=== PATIENT | female | born 2000 | race Caucasian/White ===

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

== ENCOUNTER → 2021-01-11 15:35 | Outpatient (CLI) | payer OTHER, SELFPAY ==
--- NOTE | 2021-01-11 15:39 | DI.RAD.S_ITS ---
PROCEDURE: XR CHEST 2V INDICATIONS: cough, chest congestion, pt has hx and concerned for PNA TECHNIQUE: 2 views of the chest were acquired. COMPARISON: None. FINDINGS: Surgical changes and devices: None. Lungs and pleura: Lungs are clear. No pleural effusions or pneumothorax. Mediastinum: Mediastinal contours are normal. Heart size is normal. Bones and chest wall: No suspicious bony abnormalities. Soft tissues appear unremarkable. IMPRESSION: Normal for age, source of current cough symptoms is not seen. Dictated by: Usman Saravia M.D. on 01/11/2021 at 15:45 Approved by: Usman Saravia M.D. on 01/11/2021 at 15:45
== END ==
PROVIDERS: PCP Registered Nurse Diabetes Educator; Referring Provider Physician Assistant; Visit Provider Physician Assistant
DX: R09.89 Other specified symptoms and signs involving the circulatory and respiratory systems (principal); R05 Cough
CPT/HCPCS: 71046

== ENCOUNTER 2021-02-16 19:01 | Emergency (ER) | payer OTHER, SELFPAY ==
[2021-02-16 19:12] VITALS: BP 120/75; PULSE 108; RESP 24; TEMP 37.4; O2SAT 97; BMI 27.6
--- NOTE | 2021-02-16 19:39 | ED.GENADULT ---
HPI - General Adult General Chief complaint: Upper Respiratory Symptoms Stated complaint: covid +, having breathing issues Time Seen by Provider: 02/16/21 19:16 Source: patient Mode of arrival: Ambulatory Limitations: no limitations History of Present Illness HPI narrative: Patient is an otherwise healthy 21-year-old unvaccinated against COVID female who started having COVID like symptoms approximately 10 days ago. One week ago she had a COVID test performed as an outpatient. She received a positive resolved 4 days ago. She states that her fever has improved. The rest her symptoms seem to be improving until the past 24 hours when her coughing has returned. She states she can not sleep at night because of the coughing. She has also vomited because of the coughing. Related Data Allergies Allergy/AdvReac Type Severity Reaction Status Date / Time metronidazole Allergy Mild lots of Verified 02/16/21 19:12 vomiting Review of Systems Constitutional Constitutional: Denies fever(s) Respiratory Respiratory: Reports as per HPI and Reports system reviewed and no additional complaints, except as documented Gastrointestinal Gastrointestinal: Reports system reviewed and no additional complaints, except as documented Integumentary/Breasts Skin/Breast: Reports system reviewed and no additional complaints, except as documented and Reports as per HPI Neurologic Neurologic: Reports system reviewed and no additional complaints, except as documented Hematologic/Lymphatic On Anticoagulants: No Patient History Medical History Abdominal pain Anxiety Constipation Depression Folliculitis Injury of right hand Nausea PTSD (post-traumatic stress disorder) Social History Smoking Status: Current every day smoker Tobacco: How many years used: 5 quit status: considering quitting second hand exposure: Yes (father's home and when smoking in car w/ windows up. ) alcohol intake: current substance use type: does not use Smoking Status: Current every day smoker tobacco type: cigarettes alcohol intake frequency: 0-2 drinks per day Substance Use Type: does not use Exam Initial Vital Signs Initial Vital Signs: Vital Signs Temperature 99.3 F 02/16/21 19:12 Pulse Rate 108 H 02/16/21 19:12 Respiratory Rate 24 02/16/21 19:12 Blood Pressure 120/75 02/16/21 19:12 Pulse Oximetry 97 02/16/21 19:12 HENMT Head: normal to inspection and normocephalic Resp Effort & Inspection: normal respiratory effort, not labored and not tachypneic Auscultation: clear to auscultation bilaterally and no rhonchi Cardio Rate: tachycardic Rhythm: regular rhythm Skin General: no rashes or lesions noted Neuro General: patient alert, patient awake and moves all extremities Extrem General: normal to inspection Psych Appearance: grossly normal and well kempt Course Vital Signs Vital signs: Vital Signs - 8 hr 02/16/21 19:12 Temperature 99.3 F Pulse Rate 108 H Respiratory Rate 24 Blood Pressure 120/75 Pulse Oximetry 97 Medical Decision Making ECG Data Attestation: I personally reviewed and interpreted this ECG as follows: Prior ECG tracings: available for review Interpretation: Sinus tachycardia Ventricular rate 104 Normal axis Normal QRS Normal QTC No ST T wave changes Discharge Plan Departure Patient Disposition: Home Clinical Impression: COVID-19, Cough Instructions: DI for COVID-19 (Suspected or Confirmed ) Activity Restrictions/Additional Instructions: Unfortunately there is not much we can do about the cough. You can try ygqe-sbj-jswtqcm cough suppressants. Your to quarantine yourself for the next 10 days. Be fever free and the rest her symptoms be improving before it your quarantine is over. Return to the emergency department for any oxygen saturations consistently below 90. Referrals: Morales Blake ARNP [Primary Care Provider] -
[2021-02-16 19:52] VITALS: BP 111/62; PULSE 102; RESP 15; O2SAT 96
== END 2021-02-16 19:52 | disposition home or self-care (01) ==
PROVIDERS: Emergency Provider Emergency Medicine; PCP Registered Nurse Diabetes Educator
DX: U07.1 COVID-19 (principal); R05 Cough; R00.0 Tachycardia, unspecified
CPT/HCPCS: 93005; 99282; 99283

== ENCOUNTER 2021-05-03 01:38 | Emergency (ER) | payer OTHER, SELFPAY ==
[2021-05-03] VITALS (9 sets, daily range): BP systolic 110–131; BP diastolic 56–77; PULSE 78–105; RESP 17; TEMP 36.8; O2SAT 99–100; BMI 27.3
--- NOTE | 2021-05-03 02:02 | DI.CT.S_ITS ---
PROCEDURE: CT ABDOMEN PELVIS W CON INDICATIONS: right lower quadrant pain TECHNIQUE: After the administration of intravenous contrast, axial sections acquired from the lung bases to the pubic symphysis. Coronal and sagittal reformats were performed. For radiation dose reduction, the following was used: automated exposure control, adjustment of mA and/or kV according to patient size. COMPARISON: None. FINDINGS: Image quality: Excellent. Lung bases: Unremarkable. Heart: No significant findings. ABDOMEN: Liver: Unremarkable. Gallbladder: Unremarkable. Biliary ducts: Unremarkable. Pancreas: Unremarkable. Spleen: Unremarkable. Adrenal Glands: Unremarkable. Kidneys and Ureters: Unremarkable. Stomach and Bowel: Stomach, small bowel loops, and colon are unremarkable. Appendix is not visualized. No secondary signs of acute appendicitis. Peritoneum: No abnormal intraperitoneal fluid. No free air. Ventral Wall: No hernias. Abdominal Nodes: No retroperitoneal or mesenteric adenopathy by size criteria. Vessels: Aorta and inferior vena cava are normal in size. PELVIS: Pelvic Organs: Bilateral cystic adnexa. The largest left adnexal cyst measures 4.5 x 3.5 cm. The largest right adnexal cyst measures 2.8 x 2.5 cm. Physiologic fluid in the pelvis. Collapsed right adnexal cyst . Bladder: Unremarkable. Pelvic Nodes: No enlarged lymph nodes. Miscellaneous: No hernias are seen. Bones: Unremarkable. IMPRESSION: 1. Appendix not visualized. No secondary signs of acute appendicitis. 2. Bilateral cystic adnexa. Findings include a 2.8 cm right adnexal cyst, a collapsed right adnexal cyst, and a 4.5 cm left adnexal cyst. Comment: Final report is concordant with preliminary interpretation provided by [facility]. Dictated by: Perry Rich M.D. on 05/03/2021 at 7:47 Approved by: Perry Rcih M.D. on 05/03/2021 at 7:52
--- NOTE | 2021-05-03 02:02 | ED.ABDPAIN ---
HPI - Abdominal Pain General Chief Complaint: Abdominal Pain Stated Complaint: abd pain x3 hours Time Seen by Provider: 05/03/21 01:49 Source: patient Mode of arrival: Ambulatory History of Present Illness HPI narrative: Patient is a 21 year old female who presents with right lower quadrant pain. She says it started near her umbilicus and moved to her right lower quadrant. She says this is different than her previous ovarian cyst. She was feeling well earlier today and this evening. She has had no decrease in appetite she denies any fever. No nausea or vomiting. It hurts every time she moves or walks other heart rate over also hurt. He denies any flank pain no painful or frequent urination. Her ovarian cyst was previously on the left side. Related Data Allergies Allergy/AdvReac Type Severity Reaction Status Date / Time metronidazole Allergy Mild lots of Verified 02/16/21 19:12 vomiting Review of Systems Review of Systems Narrative: GENERAL: Denies chills, fatigue, malaise, fever, sweats, travel HEENT: Denies sinus pain, ear pain, sore throat, difficulty swallowing, neck pain RESPIRATORY: Denies dyspnea, cough, wheezing, hemoptysis, sputum. CARDIOVASCULAR: Denies chest pain, palpitations, orthopnea, edema GASTROINTESTINAL: See HPI : Denies dysuria, frequency, incontinence, hematuria, urinary retention, flank pain. MUSCULOSKELETAL: Denies weakness, joint pain, or bony pain SKIN: No rash, no erythema, no pruritus NEUROLOGIC: Denies weakness, dizziness, headache, numbness, change in speech, confusion PSYCHIATRIC: No concerning psychosocial issues. 12 point review of systems is negative except for those stated above and HPI Patient History Medical History Abdominal pain Anxiety Constipation Depression Folliculitis Injury of right hand Nausea PTSD (post-traumatic stress disorder) Social History Smoking Status: Current every day smoker Tobacco: How many years used: 5 quit status: considering quitting second hand exposure: Yes (father's home and when smoking in car w/ windows up. ) alcohol intake: current substance use type: does not use Smoking Status: Current every day smoker tobacco type: cigarettes alcohol intake frequency: 0-2 drinks per day Substance Use Type: does not use Exam Initial Vital Signs Initial Vital Signs: Vital Signs Temperature 98.3 F 05/03/21 01:51 Pulse Rate 104 H 05/03/21 01:51 Respiratory Rate 17 05/03/21 01:51 Blood Pressure 131/77 05/03/21 01:51 Pulse Oximetry 99 05/03/21 01:51 GENERAL: Well-appearing, well-nourished and in no acute distress. HEENT: Head atraumatic,EOMI, pupils reactive, face symmetric, moist mucous membranes CARDIOVASCULAR: Regular rate and rhythm without murmurs, rubs or gallops. RESPIRATORY: Breath sounds equal bilaterally, no wheezes rales or rhonchi. ABDOMEN: Soft, tender right lower quadrant positive rebound negative [place] sign EXTREMITIES: Normal range of motion, no clubbing or edema. Neurovascularly intact NEUROLOGICAL: Alert and oriented x4.Normal gait and speech. SKIN: Warm, dry, no laceration, no petechiae, no rashes or lesions. Course Orders Ordered: ED Orders 05/03/21 01:51 Complete Blood Count AUTO DIFF Stat Comprehensive Metabolic Panel Stat Lipase Stat Test Serum,Qual Stat 05/03/21 02:02 CT abdomen pelvis w con Stat Vital Signs Vital signs: Vital Signs - 8 hr 05/03/21 01:51 05/03/21 02:15 05/03/21 02:30 Temperature 98.3 F Pulse Rate 104 H 94 H 93 H Respiratory Rate 17 Blood Pressure 131/77 Pulse Oximetry 99 100 100 05/03/21 02:45 05/03/21 03:00 05/03/21 03:30 Temperature Pulse Rate 105 H 84 84 Respiratory Rate Blood Pressure 120/66 116/60 110/62 Pulse Oximetry 99 99 99 05/03/21 04:00 05/03/21 04:30 05/03/21 05:41 Temperature Pulse Rate 102 H 87 78 Respiratory Rate Blood Pressure 116/56 L Pulse Oximetry 99 99 99 MDM - Abdominal Pain Lab Data Result diagrams: 05/03/21 01:51 05/03/21 01:51 Labs: Lab Results 05/03/21 05/03/21 05/03/21 Range/Units 01:51 01:51 01:51 WBC 12.2 H (4.5-11.0) X10^3/uL RBC 4.73 (4.0-5.2) X10^6/uL Hgb 13.6 (12.0-16.0) g/dL Hct 40.4 (36-46) % MCV 85.5 (80-100) fL MCH 28.8 (26-34) PG MCHC 33.7 (30-36) % RDW 13.8 (11.6-14.8) % Plt Count 303 (150-400) X10^3/uL Neut % (Auto) 60.9 (50-75) % Lymph % (Auto) 28.7 (25-40) % [place] % (Auto) 7.5 (3-14) % Eos % (Auto) 2.2 (2-4) % Baso % (Auto) 0.7 (0-2) % Neut # (Auto) 7400 H (7218-9150) /uL Lymph # (Auto) 3500 (6650-9519) /uL [place] # (Auto) 900 (0-900) /uL Eos # (Auto) 300 (0-450) /uL Baso # (Auto) 100 (0-100) /uL Sodium 139 (137-145) mmol/L Potassium 3.5 (3.4-5.1) mmol/L Chloride 106 (98-107) mmol/L Carbon Dioxide 26 (22-32) mmol/L BUN 14 (7-17) mg/dL Creatinine 0.77 (0.52-1.04) mg/dL Estimated GFR > 60.0 (>60) mL/min BUN/Creatinine Ratio 18.2 (6-22) Glucose 109 H (70-100) mg/dL Calcium 9.3 (8.4-10.2) mg/dL Total Bilirubin 1.7 H (0.2-1.3) mg/dL AST 22 (14-36) IU/L ALT 18 (<35) IU/L Alkaline Phosphatase 68 (38-126) U/L Total Protein 7.9 (6.3-8.2) g/dL Albumin 4.5 (3.5-5.0) g/dL Globulin 3.4 (1.7-4.1) g/dL Albumin/Globulin Ratio 1.3 (1.0-2.8) Lipase 65 (23-300) U/L Serum , Qual Negative (Negative) Point of care testing: Point of Care Testing Test Results Negative Urine Dip Bedside Urine Glucose Negative Bedside Urine Bilirubin - Negative Bedside Urine Ketone - Negative Urine Specific [place] 1.005 Bedside Urine Occult Blood - Negative Bedside Urine pH 6.5 Bedside Urine Protein - Negative Bedside Urine Urobilinogen +/- 1mg Bedside Urine Nitrite - Negative Bedside Urine Leukocytes - Negative Esterase Imaging Data CT scan - abdomen/pelvis: Radiologist's Impression: Preliminary report: Cystic change bilateral adnexa. Cyst within left adnexa measures up to 4.4 by 3 cm best identified on image 68 series 2. Recommended further evaluation with transabdominal transvaginal ultrasound. Small free fluid within the cul-de-sac likely physiologic or reactive. Appendix is not identified with certainty however there is no secondary signs of appendicitis with an right lower quadrant. MDM Narrative Medical decision making narrative: The patient's signs symptoms and exam are worrisome for appendicitis. She does have mild leukocytosis of 12.[address] does not show appendicitis. Patient is re-examined pain is improved but not completely gone. She is able to stand and walk certainly more comfortable than she was previously. She did not receive any pain medication in the emergency department. 5am, Dr. Bradford surgeries been obtained patient's symptoms test results at this time agrees with discharging home and returning as needed. Discharge Plan Departure Patient Disposition: Home Clinical Impression: Abdominal pain, Cyst of left ovary Instructions: DI for Abdominal Pain-Adult Activity Restrictions/Additional Instructions: *You have been diagnosed with abdominal pain *What to do: At this time CT scan does not show any sign of a sinusitis however if ear symptoms are worsening please return to the emergency department as soon as possible. You are also noted to have a large left ovarian cyst was is on likely related to his symptoms today *Continue to take medications as directed *Follow up with your primary care provider in 2-3 days *Return to ER if you should have increasing pain, fever or any new, worsening or concerning symptoms Referrals: Morales Blake ARNP [Primary Care Provider] -
[2021-05-03 02:08] LABS: Add Manual Diff / Slide Review NO; Basophils Absolute Auto 100 /uL (0-100); Basophils Percent Auto 0.7 % (0-2); Eosinophils Absolute Auto 300 /uL (0-450); Eosinophils Percent Auto 2.2 % (2-4); Hematocrit 40.4 % (36-46); Hemoglobin 13.6 g/dL (12.0-16.0); Lymphocytes Absolute Auto 3500 /uL (1100-4500); Lymphocytes Percent Auto 28.7 % (25-40); Mean Corpuscular HGB Conc 33.7 % (30-36); Mean Corpuscular Hemoglobin 28.8 PG (26-34); Mean Corpuscular Volume 85.5 fL (80-100); Monocytes Absolute Auto 900 /uL (0-900); Monocytes Percent Auto 7.5 % (3-14); Neutrophils Absolute Auto 7400 /uL (1500-7000); Neutrophils Percent Auto 60.9 % (50-75); Platelet Count 303 X10^3/uL (150-400); Red Blood Cell Count 4.73 X10^6/uL (4.0-5.2); Red Cell Distribution Width 13.8 % (11.6-14.8); White Blood Cell Count 12.2 X10^3/uL (4.5-11.0)
[2021-05-03 02:17] LABS: Alanine Aminotransferase 18 IU/L (<35); Albumin 4.5 g/dL (3.5-5.0); Albumin Globulin Ratio 1.3 (1.0-2.8); Alkaline Phosphatase 68 U/L (38-126); Aspartate Aminotransferase 22 IU/L (14-36); BUN Creatinine Ratio 18.2 (6-22); Bilirubin Total 1.7 mg/dL (0.2-1.3); Blood Urea Nitrogen 14 mg/dL (7-17); Calcium 9.3 mg/dL (8.4-10.2); Carbon Dioxide 26 mmol/L (22-32); Chloride 106 mmol/L (98-107); Estimated Glomerular Filt Rate > 60.0 mL/min (>60); Globulin 3.4 g/dL (1.7-4.1); Glucose 109 mg/dL (70-100); HEMOLYSIS < 15 (0-50); Lipase 65 U/L (23-300); Potassium 3.5 mmol/L (3.4-5.1); Sodium 139 mmol/L (137-145); Total Protein 7.9 g/dL (6.3-8.2)
[2021-05-03 02:23] LABS: Pregnancy Test Serum,Qual Negative (Negative)
== END 2021-05-03 05:49 | disposition home or self-care (01) ==
PROVIDERS: Emergency Provider Emergency Medicine; PCP Registered Nurse Diabetes Educator
DX: R10.31 Right lower quadrant pain (principal); N83.202 Unspecified ovarian cyst, left side
CPT/HCPCS: 36415; 74177; 80053; 81003; 81025; 83690; 84703; 85025; 99284; Q9967

== ENCOUNTER 2021-05-05 02:24 | Emergency (ER) | payer OTHER, SELFPAY ==
[2021-05-05 02:25] VITALS: BP 137/73; PULSE 108; RESP 17; TEMP 36.9; O2SAT 98; BMI 27.3
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
[2021-05-05] MEDS: LIDOCAINE 1% W/EPI 30 ML (03:04)
[2021-05-05] MEDS: LIDOCAINE 1% (PF) 2 ML SUBCUT (03:04)
== END 2021-05-05 03:06 | disposition home or self-care (01) ==
PROVIDERS: Emergency Provider Emergency Medicine; PCP Registered Nurse Diabetes Educator
DX: S01.02XA Laceration with foreign body of scalp, initial encounter (principal); W34.010A Accidental discharge of airgun, initial encounter
CPT/HCPCS: 12001; 99281; 99283

== ENCOUNTER → 2021-06-20 13:58 | Outpatient (CLI) | payer OTHER, SELFPAY ==
[2021-06-26 21:35] LABS: H.pylori IgG 0.52 (0.00-0.79)
== END ==
PROVIDERS: PCP Registered Nurse Diabetes Educator; Referring Provider Family Medicine; Visit Provider Family Medicine
DX: K21.9 Gastro-esophageal reflux disease without esophagitis (principal); R10.12 Left upper quadrant pain; R10.13 Epigastric pain
CPT/HCPCS: 36415; 86677

== ENCOUNTER → 2021-09-13 14:41 | Outpatient (CLI) | payer OTHER, SELFPAY ==
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
== END ==
PROVIDERS: PCP Registered Nurse Diabetes Educator; Referring Provider Registered Nurse Diabetes Educator; Visit Provider Registered Nurse Diabetes Educator
DX: M79.642 Pain in left hand; S63.617A Unspecified sprain of left little finger, initial encounter; X58.XXXA Exposure to other specified factors, initial encounter
CPT/HCPCS: 73140

== ENCOUNTER 2021-12-23 22:08 | Emergency (ER) | payer OTHER, SELFPAY ==
[2021-12-23 22:11] VITALS: BP 131/68; PULSE 127; RESP 18; TEMP 36.4; O2SAT 99; BMI 27.6
--- NOTE | 2021-12-23 22:26 | DI.US.S_ITS ---
PROCEDURE: US PELVIC COMPLETE INDICATIONS: severe LLQ pain TECHNIQUE: Real-time scanning was performed of the pelvic organs, with image documentation. Additional endovaginal scanning was necessary due to incomplete visualization of the adnexal and endometrial structures by transabdominal scanning. COMPARISON: [facility], US, US PELVIC COMPLETE, 04/13/2020, 11:04. FINDINGS: Uterus: Uterus is anteverted and normal in size at 4.3 x 4.8 x 6.8 cm. The myometrium is homogeneous. The endometrium measures 8.6 mm combined thickness. No abnormal adjacent free fluid is seen. Ovaries: The right ovary measures 2.4 x 3.0 x 2.3 cm. Suspect a small 1.8 cm hemorrhagic right ovarian cyst. The left ovary measures 2.6 x 1.2 x 2.1 cm.. The ovaries have a normal sonographic appearance. Less than 12 follicles can be seen in each ovary. No right-sided adnexal masses are seen but there does appear to be a paraovarian cyst measuring 3.5 x 3.5 x 3.9 cm that is not clearly adherent 2 or emanating from the left ovary.. Other: No pathologic free abdominal or pelvic fluid. IMPRESSION: Small presumed hemorrhagic ovarian cyst on the right. A structure that requires follow-up is located at the left adnexa were a para ovarian cyst measuring up to 3.5 x 3.5 x 3.9 cm is present. Follow-up in 6-8 weeks is recommended to confirm resolution. If this structure persists gynecological consultation for consideration of surgical excision would be recommended. We strive to produce accurate, complete, and clear reports of imaging services. To assist us in improving patient care, this report was composed using standard report templates and voice recognition software. Therefore, it may contain abnormal punctuation, insertions and/or omissions. Occasional wrong-word or sound-alike substitutions may occur. Though we review the report and make efforts to correct it, we do recommend that the report be read carefully in proper context to recognize any text inaccuracies. Dictated by: Usman Saravia M.D. on 12/23/2021 at 23:26 Approved by: Usman Saravia M.D. on 12/23/2021 at 23:30
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
[2021-12-24] VITALS: PULSE 87; RESP 16; O2SAT 99
== END 2021-12-24 | disposition home or self-care (01) ==
PROVIDERS: Emergency Provider Emergency Medicine; PCP Registered Nurse Diabetes Educator
DX: N83.202 Unspecified ovarian cyst, left side (principal)
CPT/HCPCS: 76830; 76856; 81003; 81025; 99282; 99283

== ENCOUNTER 2022-03-20 16:50 | Emergency (ER) | payer SELFPAY ==
[2022-03-20 17:18] VITALS: BP 127/53; PULSE 84; RESP 18; TEMP 36.8; O2SAT 99; BMI 27.3
== END 2022-03-20 18:14 | disposition left against medical advice (07) ==
PROVIDERS: Emergency Provider Emergency Medicine; PCP Registered Nurse Diabetes Educator
CPT/HCPCS: 99281

== ENCOUNTER 2022-03-21 23:19 | Emergency (ER) | payer OTHER, MEDICAID, SELFPAY ==
[2022-03-21 23:25] VITALS: BP 119/68; PULSE 88; RESP 20; TEMP 37.1; O2SAT 98; BMI 27.3
--- NOTE | 2022-03-22 01:39 | ED.SKABFB ---
HPI - Skin/Abscess/Foreign Bdy General Chief complaint: Skin/Abscess/Foreign Body Stated complaint: right hand tattoo infected Time Seen by Provider: 03/22/22 01:25 Source: patient Mode of arrival: Ambulatory Limitations: no limitations History of Present Illness HPI narrative: Patient is a 22-year-old female who presents with tattoo problem. She says she had a new tattoo and new shop about a week ago. She has had many to had to use however none of them have done this. Seems to be peeling is slightly raised mildly erythematous. No fever or chills. No significant swelling. She says during that time to process her hand was wiped down with rubbing alcohol many times Related Data Previous Rx's Medication Instructions Recorded omeprazole 40 mg capsule,delayed 40 mg PO BID #60 caps 06/20/21 release Splint #1 ea 10/17/21 cephalexin 500 mg capsule 500 mg PO BID 5 days #10 caps 03/22/22 Allergies Allergy/AdvReac Type Severity Reaction Status Date / Time metronidazole Allergy Mild lots of Verified 12/23/21 22:21 vomiting Review of Systems Review of Systems Narrative: GENERAL: Denies chills,fever HEENT: Denies throat pain RESPIRATORY: Denies dyspnea, cough, wheezing CARDIOVASCULAR: Denies chest pain, palpitations GASTROINTESTINAL: Denies nausea, vomiting MUSCULOSKELETAL: Denies extremity pain, injury SKIN: see HPI NEUROLOGIC: Denies weakness, dizziness, headache, numbness 8 point review of systems is negative except for those stated above and HPI Patient History Medical History Abdominal pain Abdominal pain, left upper quadrant Anxiety Constipation Depression Epigastric abdominal pain Folliculitis GERD (gastroesophageal reflux disease) Injury of right hand Nausea PTSD (post-traumatic stress disorder) Social History Smoking Status: Former smoker Tobacco: How many years used: 5 quit status: considering quitting second hand exposure: Yes (father's home and when smoking in car w/ windows up. ) alcohol intake: current substance use type: does not use Smoking Status: Former smoker tobacco type: cigarettes alcohol intake frequency: holidays/special occasions only Substance Use Type: does not use Exam Initial Vital Signs Initial Vital Signs: Vital Signs Temperature 98.8 F 03/21/22 23:25 Pulse Rate 88 03/21/22 23:25 Respiratory Rate 20 03/21/22 23:25 Blood Pressure 119/68 03/21/22 23:25 Pulse Oximetry 98 03/21/22 23:25 Oxygen Delivery Method 03/21/22 23:25 GENERAL: Well-appearing, well-nourished and in no acute distress. CARDIOVASCULAR: peripheral pulses in tact, cap refill <2 sec RESPIRATORY: No respiratory distress, speaks in full sentences without difficulty EXTREMITIES: Normal range of motion, no clubbing or edema. Neurovascularly intact NEUROLOGICAL: Cranial nerves II through XII grossly intact. Normal gait and speech. SKIN: Right hand tattoo on right thumb and thenar eminence. Some it is slightly raised and peeling there is minimal erythema surrounding it there is no streaking there is no pain out of proportion Course Vital Signs Vital signs: Vital Signs - 8 hr 03/21/22 23:25 03/22/22 02:04 Temperature 98.8 F Pulse Rate 88 84 Respiratory Rate 20 18 Blood Pressure 119/68 117/70 Pulse Oximetry 98 99 Oxygen Delivery Method Room Air Room Air MDM - Skin/Abscess/Foreign Bdy MDM Narrative Medical decision making narrative: Patient has minimal erythema looks like it is healing. Will start her on short course of antibiotics. At this time no sign of sepsis. Forearm and hand is soft no sign of compartment syndrome. Discharge Plan Departure Patient Disposition: Home Clinical Impression: Cellulitis of right hand Instructions: DI for Cellulitis -- Adult Activity Restrictions/Additional Instructions: *You have been diagnosed with cellulitis right hand *What to do: At this time he might have a very slight infection. Continue with hydration and antibiotic ointment. He can start antibiotics tomorrow. *Continue to take medications as directed Keflex 500 mg twice a day for 5 days--> [facility] [place] *Follow up with your primary care provider in 2-3 days or call [phone] *Return to ER if you should have increased redness pain swelling fever chills [or] any new, worsening or concerning symptoms Prescriptions: New cephalexin 500 mg capsule 500 mg PO BID 5 Days Qty: 10 0RF No Action (DME) Splint See Rx Instructions .Route .MEDSUPPLY Qty: 1 0RF Rx Instructions: As directed omeprazole 40 mg capsule,delayed release(DR/EC) 40 mg PO BID Qty: 60 0RF Referrals: Morales Blake ARNP [Primary Care Provider] - Visit Report Forms: Patient Portal/API
[2022-03-22 02:04] VITALS: BP 117/70; PULSE 84; RESP 18; O2SAT 99
== END 2022-03-22 02:05 | disposition home or self-care (01) ==
PROVIDERS: Emergency Provider Emergency Medicine; PCP Registered Nurse Diabetes Educator
DX: L03.113 Cellulitis of right upper limb (principal)
CPT/HCPCS: 99281

== ENCOUNTER 2022-04-19 19:37 | Emergency (ER) | payer OTHER, MEDICAID, SELFPAY ==
[2022-04-19 19:44] VITALS: BP 107/59; PULSE 75; RESP 14; TEMP 35.9; O2SAT 99; BMI 27.6
[2022-04-19 20:39] VITALS: BP 118/61; PULSE 77; O2SAT 99
[2022-04-19 21:00] VITALS: BP 120/58; PULSE 73; RESP 19; O2SAT 98
--- NOTE | 2022-04-19 23:04 | ED.ARRPALP ---
HPI - Arrhythmia/Palpitations General Chief Complaint: Arrhythmia/Palpitations Stated Complaint: Heart palpitations Time Seen by Provider: 04/19/22 22:10 Source: patient Mode of arrival: Ambulatory History of Present Illness HPI narrative: 22-year-old woman with a history of intermittent reflux type symptoms presents with palpitations that seem to be getting worse. She 1st noticed at the age of 16 that she would have an occasional irregular beat that was uncomfortable but not particularly painful. She had an EKG for evaluation at that time but has no further evaluation done. She notes that she is continued to have palpitations over the years but the last month it is gotten particularly troublesome and today she had an event with a couple of irregular beats that were hard and pounding enough that she felt that she was going to pass out. This caused enough concerned that she is coming in for further evaluation. She reports no recent viral symptoms, dyspnea, orthopnea. She does note that due to her work schedule her sleep schedule has been increasingly chaotic over the last month. She does not consume significant stimulants including caffeine, energy drinks, cocaine or methamphetamine. Denies recreational opiates and IV drug use. No other diet or metabolic supplements. No nausea, vomiting, diarrhea, abdominal pain, headache. She notes that she is successfully quit smoking about a month ago. Related Data Previous Rx's Medication Instructions Recorded omeprazole 40 mg capsule,delayed 40 mg PO BID #60 caps 06/20/21 release Splint #1 ea 10/17/21 Allergies Allergy/AdvReac Type Severity Reaction Status Date / Time metronidazole Allergy Mild lots of Verified 12/23/21 22:21 vomiting Review of Systems Review of Systems Narrative: Remainder of complete review of systems is otherwise unremarkable except for that included in the HPI. Patient History Medical History Abdominal pain Abdominal pain, left upper quadrant Anxiety Constipation Depression Epigastric abdominal pain Folliculitis GERD (gastroesophageal reflux disease) Injury of right hand Nausea PTSD (post-traumatic stress disorder) Social History Smoking Status: Former smoker Tobacco: How many years used: 5 quit status: considering quitting second hand exposure: Yes (father's home and when smoking in car w/ windows up. ) alcohol intake: current substance use type: does not use Smoking Status: Former smoker tobacco type: cigarettes alcohol intake frequency: holidays/special occasions only Substance Use Type: does not use Exam Initial Vital Signs Initial Vital Signs: Vital Signs Temperature 96.6 F L 04/19/22 19:44 Pulse Rate 75 04/19/22 19:44 Respiratory Rate 14 04/19/22 19:44 Blood Pressure 107/59 L 04/19/22 19:44 Pulse Oximetry 99 04/19/22 19:44 Oxygen Delivery Method 04/19/22 19:44 General: Healthy appearing, in no acute distress. Able to give a complete and coherent history. Well-nourished well-developed HEENT: Moist mucous membranes, normal sclera with reactive pupils, Neck: supple Respiratory: Lungs are clear to auscultation, no wheezing no rales no rhonchi. Full and symmetrical air movement Cardiac: Regular rate and rhythm no murmurs no bruits Abdomen: Soft, nontender, good bowel tones, no flank pain Skin: Warm and dry, no rashes Neurologic: Grossly neurologically intact with no obvious asymmetries or abnormalities Extremities: No trauma, well perfused Psych: Cooperative, appropriate insight and affect Course Orders Ordered: ED Orders 04/19/22 20:46 EKG-12 Lead Stat 04/19/22 23:12 XR chest 1V Stat 04/19/22 23:47 Complete Blood Count AUTO DIFF Stat Comprehensive Metabolic Panel Stat Thyroid Stimulating Hormone Stat Troponin & CK Cardiac Panel Stat 04/20/22 00:54 Free T4, Direct Thyroxine Stat Vital Signs Vital signs: Vital Signs - 8 hr 04/19/22 19:44 04/19/22 20:39 04/19/22 20:39 Temperature 96.6 F L Pulse Rate 75 77 Respiratory Rate 14 Blood Pressure 107/59 L 118/61 Pulse Oximetry 99 99 Oxygen Delivery Method Room Air 04/19/22 21:00 04/19/22 21:00 04/19/22 23:08 Temperature Pulse Rate 73 75 Respiratory Rate 19 18 Blood Pressure 120/58 L Pulse Oximetry 98 Oxygen Delivery Method 04/19/22 23:30 04/20/22 00:00 04/20/22 00:30 Temperature Pulse Rate 78 87 83 Respiratory Rate 36 H 26 H 30 H Blood Pressure Pulse Oximetry 98 98 98 Oxygen Delivery Method 04/20/22 01:00 04/20/22 01:08 Temperature Pulse Rate 88 85 Respiratory Rate 21 16 Blood Pressure 122/57 L Pulse Oximetry 98 100 Oxygen Delivery Method Room Air MDM - Arrhythmia/Palpitations Lab Data Result diagrams: 04/19/22 23:47 04/19/22 23:47 Labs: Lab Results 04/19/22 04/19/22 04/19/22 Range/Units 23:47 23:47 23:47 WBC 7.8 (4.5-11.0) X10^3/uL RBC 4.82 (4.0-5.2) X10^6/uL Hgb 13.6 (12.0-16.0) g/dL Hct 40.2 (36-46) % MCV 83.5 (80-100) fL MCH 28.1 (26-34) PG MCHC 33.7 (30-36) % RDW 12.9 (11.6-14.8) % Plt Count 329 (150-400) X10^3/uL Neut % (Auto) 54.5 (50-75) % Lymph % (Auto) 35.8 (25-40) % [place] % (Auto) 6.4 (3-14) % Eos % (Auto) 2.6 (2-4) % Baso % (Auto) 0.7 (0-2) % Neut # (Auto) 4200 (3635-9397) /uL Lymph # (Auto) 2800 (9140-8253) /uL [place] # (Auto) 500 (0-900) /uL Eos # (Auto) 200 (0-450) /uL Baso # (Auto) 100 (0-100) /uL Sodium 139 (137-145) mmol/L Potassium 3.6 (3.4-5.1) mmol/L Chloride 104 (98-107) mmol/L Carbon Dioxide 24 (22-32) mmol/L BUN 8 (7-17) mg/dL Creatinine 0.53 (0.52-1.04) mg/dL Estimated GFR > 60 (>60) mL/min BUN/Creatinine Ratio 15.1 (6-22) Glucose 84 (70-100) mg/dL Calcium 8.9 (8.4-10.2) mg/dL Total Bilirubin 2.6 H (0.2-1.3) mg/dL AST 31 (14-36) IU/L ALT 27 (<35) IU/L Alkaline Phosphatase 82 (38-126) U/L Total Creatine Kinase (30-135) U/L CK-MB (CK-2) CK-MB (CK-2) Rel Index Troponin I (0.01-0.034) ng/mL Total Protein 7.8 (6.3-8.2) g/dL Albumin 4.4 (3.5-5.0) g/dL Globulin 3.4 (1.7-4.1) g/dL Albumin/Globulin Ratio 1.3 (1.0-2.8) TSH 0.210 L (0.47-4.68) uIU/mL Free T4 (0.78-2.19) ng/dL 04/19/22 04/19/22 Range/Units 23:47 23:47 WBC (4.5-11.0) X10^3/uL RBC (4.0-5.2) X10^6/uL Hgb (12.0-16.0) g/dL Hct (36-46) % MCV (80-100) fL MCH (26-34) PG MCHC (30-36) % RDW (11.6-14.8) % Plt Count (150-400) X10^3/uL Neut % (Auto) (50-75) % Lymph % (Auto) (25-40) % [place] % (Auto) (3-14) % Eos % (Auto) (2-4) % Baso % (Auto) (0-2) % Neut # (Auto) (1328-8968) /uL Lymph # (Auto) (8949-6936) /uL [place] # (Auto) (0-900) /uL Eos # (Auto) (0-450) /uL Baso # (Auto) (0-100) /uL Sodium (137-145) mmol/L Potassium (3.4-5.1) mmol/L Chloride (98-107) mmol/L Carbon Dioxide (22-32) mmol/L BUN (7-17) mg/dL Creatinine (0.52-1.04) mg/dL Estimated GFR (>60) mL/min BUN/Creatinine Ratio (6-22) Glucose (70-100) mg/dL Calcium (8.4-10.2) mg/dL Total Bilirubin (0.2-1.3) mg/dL AST (14-36) IU/L ALT (<35) IU/L Alkaline Phosphatase (38-126) U/L Total Creatine Kinase 39 (30-135) U/L CK-MB (CK-2) TNP CK-MB (CK-2) Rel Index TNP Troponin I < 0.012 (0.01-0.034) ng/mL Total Protein (6.3-8.2) g/dL Albumin (3.5-5.0) g/dL Globulin (1.7-4.1) g/dL Albumin/Globulin Ratio (1.0-2.8) TSH (0.47-4.68) uIU/mL Free T4 1.37 (0.78-2.19) ng/dL Imaging Data Chest x-ray: Radiologist's Impresson: FINDINGS:? ? Surgical changes and devices:? None.? ? Lungs and pleura:? Lungs are clear.? No pleural effusions or pneumothorax.? ? Mediastinum:? Mediastinal contours appear normal.? Heart size is normal.? ? Bones and chest wall:? No suspicious bony lesions.? Overlying soft tissues appear unremarkable.? ? IMPRESSION:? ? 1.? No acute cardiopulmonary disease. ? ? ? Dictated by: Jon Aggarwal M.D. on 04/20/2022 at 0:46 ? ? ECG Data Interpretation: Sinus rhythm at a rate of 70 with occasional sinus Arrhythmia. Normal intervals, normal axis No acute ischemic changes MDM Narrative Medical decision making narrative: 22-year-old woman with increasing palpitations. Workup is relatively unremarkable. She is having mild sinus arrhythmia but no pathologic rhythms or SVT. She does note that she is been having increasing sleep disturbances due to work but no other significant abnormalities. She does note she had upper respiratory infection a couple of weeks ago. Lab work, EKG and chest x-ray did not suggest any evidence of cardiomyopathy, pericarditis or myocarditis. TSH is slightly suppressed T4 will be added. Will contact her if the T4 is off and if it is she will need to follow up with the primary care physician at this point she is not losing weight and does not have fine motor tremor to suggest significant hyperthyroidism. Reassurance is given, talked about circadian rhythms and importance of scheduled and regular sleep. Questions are answered and she is safe for discharge home Discharge Plan Departure Patient Disposition: Home Clinical Impression: Sinus arrhythmia Instructions: DI for Hyperthyroidism, DI for Arrhythmias Activity Restrictions/Additional Instructions: Thank you for coming in today Your exam, EKG, lab work and clinical workup is very reassuring. You are having occasional early heartbeats. This is called a sinus arrhythmia. This is not life-threatening and it is not a precursor of a life-threatening arrhythmia. It is somewhat disconcerting. Your lab work suggested that you may have mild hyper thyroidism. I added a 2nd lab tests and I will text you later this morning with results of that. If this is normal, you do not need any further follow-up. If this is abnormal you will need to find a primary care physician to talk about hyperthyroidism. In the meantime, doing what you can to keep your sleep patterns regular and maintain circadian rhythms, being well hydrated and avoiding stimulants like caffeine and energy drinks will be helpful in decreasing heart palpitations. I wish you the best. Prescriptions: No Action (DME) Splint See Rx Instructions .Route .MEDSUPPLY Qty: 1 0RF Rx Instructions: As directed omeprazole 40 mg capsule,delayed release(DR/EC) 40 mg PO BID Qty: 60 0RF Referrals: Morales Blake ARNP [Primary Care Provider] - Visit Report Forms: Patient Portal/API
[2022-04-19 23:08] VITALS: PULSE 75; RESP 18
--- NOTE | 2022-04-19 23:12 | DI.RAD.S_ITS ---
PROCEDURE: XR CHEST 1V INDICATIONS: palpitations TECHNIQUE: One view of the chest was acquired. COMPARISON: [facility], CR, XR CHEST 2V, 01/11/2021, 15:34. FINDINGS: Surgical changes and devices: None. Lungs and pleura: Lungs are clear. No pleural effusions or pneumothorax. Mediastinum: Mediastinal contours appear normal. Heart size is normal. Bones and chest wall: No suspicious bony lesions. Overlying soft tissues appear unremarkable. IMPRESSION: 1. No acute cardiopulmonary disease. Dictated by: Jon Aggarwal M.D. on 04/20/2022 at 0:46 Approved by: Jon Aggarwal M.D. on 04/20/2022 at 0:46
[2022-04-19 23:30] VITALS: PULSE 78; RESP 36; O2SAT 98
[2022-04-19 23:55] LABS: Add Manual Diff / Slide Review NO; Basophils Absolute Auto 100 /uL (0-100); Basophils Percent Auto 0.7 % (0-2); Eosinophils Absolute Auto 200 /uL (0-450); Eosinophils Percent Auto 2.6 % (2-4); Hematocrit 40.2 % (36-46); Hemoglobin 13.6 g/dL (12.0-16.0); Lymphocytes Absolute Auto 2800 /uL (1100-4500); Lymphocytes Percent Auto 35.8 % (25-40); Mean Corpuscular HGB Conc 33.7 % (30-36); Mean Corpuscular Hemoglobin 28.1 PG (26-34); Mean Corpuscular Volume 83.5 fL (80-100); Monocytes Absolute Auto 500 /uL (0-900); Monocytes Percent Auto 6.4 % (3-14); Neutrophils Absolute Auto 4200 /uL (1500-7000); Neutrophils Percent Auto 54.5 % (50-75); Platelet Count 329 X10^3/uL (150-400); Red Blood Cell Count 4.82 X10^6/uL (4.0-5.2); Red Cell Distribution Width 12.9 % (11.6-14.8); White Blood Cell Count 7.8 X10^3/uL (4.5-11.0)
[2022-04-20] VITALS: PULSE 87; RESP 26; O2SAT 98
[2022-04-20 00:10] LABS: Alanine Aminotransferase 27 IU/L (<35); Albumin 4.4 g/dL (3.5-5.0); Albumin Globulin Ratio 1.3 (1.0-2.8); Alkaline Phosphatase 82 U/L (38-126); Aspartate Aminotransferase 31 IU/L (14-36); BUN Creatinine Ratio 15.1 (6-22); Bilirubin Total 2.6 mg/dL (0.2-1.3); Blood Urea Nitrogen 8 mg/dL (7-17); Calcium 8.9 mg/dL (8.4-10.2); Carbon Dioxide 24 mmol/L (22-32); Chloride 104 mmol/L (98-107); Estimated Glomerular Filt Rate > 60 mL/min (>60); Globulin 3.4 g/dL (1.7-4.1); Glucose 84 mg/dL (70-100); HEMOLYSIS < 15 (0-50); Potassium 3.6 mmol/L (3.4-5.1); Sodium 139 mmol/L (137-145); Total Protein 7.8 g/dL (6.3-8.2)
[2022-04-20 00:12] LABS: Creatine Kinase 39 U/L (30-135)
[2022-04-20 00:22] LABS: Troponin I < 0.012 ng/mL (0.01-0.034)
[2022-04-20 00:30] VITALS: PULSE 83; RESP 30; O2SAT 98
[2022-04-20 01:00] VITALS: PULSE 88; RESP 21; O2SAT 98
[2022-04-20 01:08] VITALS: BP 122/57; PULSE 85; RESP 16; O2SAT 100
[2022-04-20 02:37] LABS: Free T4, Direct Thyroxine 1.37 ng/dL (0.78-2.19)
== END 2022-04-20 01:09 | disposition home or self-care (01) ==
PROVIDERS: Emergency Provider Emergency Medicine; PCP Registered Nurse Diabetes Educator
DX: I49.8 Other specified cardiac arrhythmias (principal)
CPT/HCPCS: 36415; 71045; 80053; 82550; 82553; 84439; 84443; 84484; 85025; 93005; 99281; 99284

== ENCOUNTER → 2022-04-23 17:43 | Outpatient (ROUT) | payer OTHER, MEDICAID, SELFPAY ==
[2022-04-24 17:56] LABS: Free T3, Triiodothyronine Free 4.21 pg/mL (2.77-5.27)
== END ==
PROVIDERS: PCP Registered Nurse Diabetes Educator; Visit Provider Registered Nurse Diabetes Educator
DX: R79.89 Other specified abnormal findings of blood chemistry (principal)
CPT/HCPCS: 84481

== ENCOUNTER → 2022-09-26 15:12 | Outpatient (CLI) | payer OTHER, MEDICAID, SELFPAY ==
--- NOTE | 2022-09-26 15:14 | DI.US.S_ITS ---
PROCEDURE: US PELVIC COMPLETE INDICATIONS: checking on status of cyst seen 12/23/21 TECHNIQUE: Real-time scanning was performed of the pelvic organs, with image documentation. Additional endovaginal scanning was necessary due to incomplete visualization of the adnexal and endometrial structures by transabdominal scanning. COMPARISON: [facility], US, US PELVIC COMPLETE, 12/23/2021, 22:49. FINDINGS: Uterus: Uterus is anteverted and normal in size at 6.7 x 3.2 x 3.9 cm. The myometrium is homogeneous. The endometrium measures 14 mm combined thickness. Ovaries: The right ovary measures 2.6 x 1.3 x 1.3 cm, with a calculated ovarian volume of 2.4 cc. The left ovary measures 3.3 x 2.0 by 2.3 cm, with a calculated ovarian volume of 7 cc. The ovaries have a normal sonographic appearance. Less than 12 follicles can be seen in each ovary. Left-sided simple cystic lesion measuring 3.3 x 2.9 x 3.8 centimeters, previously 3.5 x 3.5 x 3.9 centimeter. Resolved right ovarian cyst. Other: No pathologic free abdominal or pelvic fluid. IMPRESSION: Stable benign left ovarian cystic lesion. Resolved right ovarian cystic lesion. We strive to produce accurate, complete, and clear reports of imaging services. To assist us in improving patient care, this report was composed using standard report templates and voice recognition software. Therefore, it may contain abnormal punctuation, insertions and/or omissions. Occasional wrong-word or sound-alike substitutions may occur. Though we review the report and make efforts to correct it, we do recommend that the report be read carefully in proper context to recognize any text inaccuracies. Dictated by: Rudy Ríos M.D. on 09/26/2022 at 16:42 Approved by: Rudy Ríos M.D. on 09/26/2022 at 16:44
== END ==
PROVIDERS: PCP Registered Nurse Diabetes Educator; Referring Provider Registered Nurse Diabetes Educator; Visit Provider Registered Nurse Diabetes Educator
DX: N83.201 Unspecified ovarian cyst, right side (principal); N83.292 Other ovarian cyst, left side
CPT/HCPCS: 76830; 76856; 93976

== ENCOUNTER → 2022-10-11 13:28 | Outpatient (CLI) | payer OTHER, MEDICAID, SELFPAY | PROVIDERS: PCP Registered Nurse Diabetes Educator; Referring Provider Registered Nurse Diabetes Educator; Visit Provider Registered Nurse Diabetes Educator | DX: R00.2 Palpitations (principal) | CPT/HCPCS: 93242 ==

== ENCOUNTER 2022-10-15 02:04 | Emergency (ER) | payer OTHER, MEDICAID, SELFPAY ==
[2022-10-15 02:14] VITALS: BP 130/72; PULSE 96; RESP 18; TEMP 36.5; O2SAT 99; BMI 27.3
--- NOTE | 2022-10-15 02:31 | ED.URI ---
HPI - URI/Sore Throat General Chief Complaint: Upper Respiratory Symptoms Stated Complaint: panic attack, feels something is stuck in throat Time Seen by Provider: 10/15/22 02:19 Source: patient Mode of arrival: Ambulatory History of Present Illness HPI Narrative: Patient is a 22-year-old female history of anxiety presenting today with her throat. She reports that over the last couple of weeks she has randomly felt like something is in her throat. She denies any inability to swallow or difficulty breathing. She does not remember swallowing any foreign body. She says she woke up tonight felt the same symptoms she always did and then got very anxious and afraid and came to the ED. She is no chest pain or palpitations no abdominal pain, nausea or vomiting. It appears that she had TSH checked in April of 2022 but has not been rechecked. Related Data Previous Rx's Medication Instructions Recorded clindamycin phosphate 1 % topical 1 applic topical BID #30 mL 10/03/22 solution Allergies Allergy/AdvReac Type Severity Reaction Status Date / Time metronidazole Allergy Mild lots of Verified 10/15/22 02:14 vomiting Review of Systems Review of Systems ROS Unobtainable: All systems reviewed & are unremarkable except as noted in HPI and below Patient History Medical History Abdominal pain Abdominal pain, left upper quadrant Anxiety Constipation Depression Epigastric abdominal pain Folliculitis GERD (gastroesophageal reflux disease) Injury of right hand Nausea PTSD (post-traumatic stress disorder) Social History Smoking Status: Former smoker Tobacco: How many years used: 5 quit status: considering quitting second hand exposure: Yes (father's home and when smoking in car w/ windows up. ) alcohol intake: current substance use type: does not use Smoking Status: Former smoker tobacco type: cigarettes alcohol intake frequency: holidays/special occasions only Substance Use Type: does not use Exam Initial Vital Signs Initial Vital Signs: Vital Signs Temperature 97.7 F 10/15/22 02:14 Pulse Rate 96 H 10/15/22 02:14 Respiratory Rate 18 10/15/22 02:14 Blood Pressure 130/72 10/15/22 02:14 Pulse Oximetry 99 10/15/22 02:14 Oxygen Delivery Method Room Air 10/15/22 02:14 GENERAL: Alert well-appearing 22-year-old female HEENT: Head atraumatic,EOMI, pupils reactive, face symmetric, moist mucous membranes NECK: No significant goiter PHARYNX: No erythema, no tonsillar exudate, no cervical lymphadenopathy CARDIOVASCULAR: Regular rate and rhythm without murmurs, rubs or gallops. RESPIRATORY: Breath sounds equal bilaterally, no wheezes rales or rhonchi. Managing own secretions EXTREMITIES: Normal range of motion, no clubbing or edema. Neurovascularly intact NEUROLOGICAL: Alert and oriented x4. SKIN: Warm, dry, no laceration, no petechiae, no rashes or lesions. Course Vital Signs Vital signs: Vital Signs - 8 hr 10/15/22 02:14 Temperature 97.7 F Pulse Rate 96 H Respiratory Rate 18 Blood Pressure 130/72 Pulse Oximetry 99 Oxygen Delivery Method Room Air MDM - URI/Sore Throat MDM Narrative Medical decision making narrative: Patient is a 22-year-old female history of anxiety anxious tonight. She is had a couple weeks of some throat and neck discomfort. No evidence of an anaphylactic reaction no history of swallowing a foreign body does not sound quite like esophageal spasm. Possible acid reflux I did not appreciate a significant thyroid goiter but might be worth rechecking and possibly doing an ultrasound if needed as an outpatient. At this time I recommended acid reflux medicine to see if that helps GERD is another possibility. She is not having chest pain or palpitations she points to 1 specific area in her neck where she feels it every single time. At this time she does not want medication in the ED she would like to take a [id number]. We discussed symptoms and when to return to ED. Discharge Plan Departure Patient Disposition: Home Clinical Impression: GERD (gastroesophageal reflux disease) Instructions: Nontoxic Nodular Goiter, DI for Gastroesophageal Reflux Disease (GERD) Activity Restrictions/Additional Instructions: *You have been diagnosed with possible acid reflux *What to do: At this time I recommend taking [id number] acid reflux as directed this near may not help. He may also need to talk with your primary care provider in regards to having repeat thyroid testing done and possible ultrasound. *Continue to take medications as directed Famotidine, Tums, pantoprazole or other antacid medications [id number] *Follow up with your primary care provider in 2-3 days or call [phone] *Return to ER if you should have inability to breathe it, throat swelling, inability to swallow solids liquids or spit, palpitations chest pain passing out or any new, worsening or concerning symptoms Prescriptions: No Action clindamycin phosphate 1 % solution 1 applic topical BID Qty: 30 0RF Referrals: Morales Blake ARNP [Primary Care Provider] - Stand Alone Forms: Patient Portal/API
== END 2022-10-15 02:50 | disposition home or self-care (01) ==
PROVIDERS: Emergency Provider Emergency Medicine; PCP Registered Nurse Diabetes Educator
DX: K21.9 Gastro-esophageal reflux disease without esophagitis (principal)
CPT/HCPCS: 99281

== ENCOUNTER → 2022-11-22 11:31 | Outpatient (CLI) | payer OTHER, MEDICAID, SELFPAY ==
--- NOTE | 2022-11-22 11:34 | DI.RAD.S_ITS ---
PROCEDURE: XR ACUTE ABDOMEN SERIES INDICATIONS: r flank, abdominal pain TECHNIQUE: One view chest and two views of the abdomen were acquired. COMPARISON: [facility], CT, CT ABDOMEN PELVIS W CON, 05/03/2021, 2:12. FINDINGS: Surgical changes and devices: None. Chest: Lungs are clear. Heart size is normal. No pleural effusions. No pneumoperitoneum. Abdomen: Bowel gas pattern is normal. 3 millimeter phlebolith projects over the lower right hemipelvis which is without significant change compared to prior CT scan. Visualized solid organ contours appear normal. Bones: No suspicious bony lesions. IMPRESSION: No renal stone by plain film radiograph. Dictated by: Nicole Dover MD, PhD on 11/22/2022 at 13:17 Approved by: Nicole Dover MD, PhD on 11/22/2022 at 13:20
[2022-11-22 12:15] LABS: Hematocrit 39.6 % (36-46); Hemoglobin 13.7 g/dL (12.0-16.0); Mean Corpuscular HGB Conc 34.6 % (30-36); Mean Corpuscular Hemoglobin 29.2 PG (26-34); Mean Corpuscular Volume 84.7 fL (80-100); Platelet Count 272 X10^3/uL (150-400); Red Blood Cell Count 4.68 X10^6/uL (4.0-5.2); Red Cell Distribution Width 12.7 % (11.6-14.8); White Blood Cell Count 6.4 X10^3/uL (4.5-11.0)
[2022-11-22 12:30] LABS: Alanine Aminotransferase 31 IU/L (<35); Albumin 4.1 g/dL (3.5-5.0); Albumin Globulin Ratio 1.4 (1.0-2.8); Alkaline Phosphatase 81 U/L (38-126); Aspartate Aminotransferase 28 IU/L (14-36); BUN Creatinine Ratio 9.2 (6-22); Bilirubin Total 2.9 mg/dL (0.2-1.3); Blood Urea Nitrogen 6 mg/dL (7-17); Calcium 9.4 mg/dL (8.4-10.2); Carbon Dioxide 25 mmol/L (22-32); Chloride 105 mmol/L (98-107); Estimated Glomerular Filt Rate > 60 mL/min (>60); Glucose 99 mg/dL (70-100); HEMOLYSIS < 15 (0-50); Potassium 4.3 mmol/L (3.4-5.1); Sodium 138 mmol/L (137-145); Total Protein 7.1 g/dL (6.3-8.2)
== END ==
PROVIDERS: PCP Registered Nurse Diabetes Educator; Referring Provider Nurse Practitioner Family; Visit Provider Nurse Practitioner Family
DX: K59.00 Constipation, unspecified (principal); R10.9 Unspecified abdominal pain
CPT/HCPCS: 36415; 74022; 80053; 81002; 85027

== ENCOUNTER 2023-05-03 01:46 | Emergency (ER) | payer OTHER, MEDICAID, SELFPAY ==
[2023-05-03 01:53] VITALS: BP 121/58; PULSE 89; RESP 16; TEMP 36.8; O2SAT 100; BMI 23.6
--- NOTE | 2023-05-03 02:05 | DI.US.S_ITS ---
PROCEDURE: US PELVIC COMPLETE INDICATIONS: L adnexa pain with hx of cyst TECHNIQUE: Real-time scanning was performed of the pelvic organs, with image documentation. Additional endovaginal scanning was necessary due to incomplete visualization of the adnexal and endometrial structures by transabdominal scanning. COMPARISON: [facility], CT, CT ABDOMEN PELVIS W CON, 05/03/2021, 2:12. May 03, 2021 [facility], US, US PELVIC COMPLETE, 09/26/2022, 15:30. FINDINGS: Uterus: Uterus is anteverted and normal in size at 7.8 x 4.2 x 3.5 cm. The myometrium is homogeneous. The endometrium measures 0.8 cm combined thickness. Cervix and vagina are otherwise normal with benign nabothian cysts. Ovaries: The right ovary measures 3.9 x 2.1 x 2.5 cm, with a calculated ovarian volume of 10.6 cc. The left ovary measures 3.3 x 2.8 x 2 cm, with a calculated ovarian volume of 9.5 cc. The ovaries have a normal sonographic appearance. Normal arterial and venous Doppler flow to the bilateral ovaries. Less than 12 follicles can be seen in each ovary. Left paraovarian cystic lesion measuring 4.5 x 3.1 x 3 cm, previously 3.8 x 3.3 x 2.9 cm. Other: No pathologic free abdominal or pelvic fluid. IMPRESSION: 1. No sonographic evidence of ovarian torsion. Bilateral ovaries are symmetric in size and volume. 2. Similar size of left paraovarian simple cyst measuring 4.5 x 3.1 x 3 cm, previously 3.8 x 3.3 x 2.9 cm on September 26, 2022. This remotely measured 4.[address] dated April 30, 2021. 3. Normal sonographic appearance of the uterus with endometrial thickness of 0.8 cm. I agree with the preliminary report. Dictated by: Vinod Mullins M.D. on 05/03/2023 at 8:39 Approved by: Vinod Mullins M.D. on 05/03/2023 at 8:46
--- NOTE | 2023-05-03 02:07 | ED_ITS ---
HPI - General Adult General Chief complaint: Abdominal Pain Stated complaint: ovarian cyst and having pulsating pain Time Seen by Provider: 05/03/23 01:51 Source: patient Mode of arrival: Ambulatory Limitations: no limitations History of Present Illness HPI narrative: 23-year-old female who is here for evaluation of left lower quadrant/left adnexal discomfort. Has been going on for the past 2 weeks. This evening it has been worse than normal. No change with urination. No bowel movement changes. She has had discomfort like this in the past but she states that the discomfort that she has now is worse and different than normal. She states it is a pulsating pain. Has not tried anything for the symptoms. She has a known left-sided ovarian cyst that has been monitored over the past year or so with ultrasounds. There has been discussion about surgical removal however she has quite a bit of anxiety about surgery so has not pursued this option. Last menstrual cycle was a couple weeks ago Related Data Allergies Allergy/AdvReac Type Severity Reaction Status Date / Time metronidazole Allergy Mild lots of Verified 03/25/23 12:04 vomiting Review of Systems Gastrointestinal Gastrointestinal: Reports system reviewed and no additional complaints, except as documented Genitourinary Genitourinary: Reports system reviewed and no additional complaints, except as documented Integumentary/Breasts Skin/Breast: Reports system reviewed and no additional complaints, except as documented Patient History Medical History GERD (gastroesophageal reflux disease) Epigastric abdominal pain Abdominal pain, left upper quadrant Constipation Nausea Abdominal pain Folliculitis Injury of right hand PTSD (post-traumatic stress disorder) Depression Anxiety Social History Smoking Status: Former smoker Tobacco: How many years used: 5 quit status: considering quitting second hand exposure: Yes (father's home and when smoking in car w/ windows up. ) alcohol intake: current substance use type: does not use Smoking Status: Former smoker tobacco type: cigarettes alcohol intake frequency: holidays/special occasions only Substance Use Type: does not use Exam Initial Vital Signs Initial Vital Signs: Vital Signs Temperature 98.3 F 05/03/23 01:53 Pulse Rate 89 05/03/23 01:53 Respiratory Rate 16 05/03/23 01:53 Blood Pressure 121/58 L 05/03/23 01:53 Pulse Oximetry 100 05/03/23 01:53 Oxygen Delivery Method Room Air 05/03/23 01:53 HENMT Head: normal to inspection and normocephalic Resp Effort & Inspection: normal respiratory effort Cardio Rate: regular rate GI Inspection: normal to inspection and non-distended Palpation: soft, No firm and No tender Back/Spine/Pelvis Back: No CVA tenderness Course Orders Ordered: ED Orders 05/03/23 02:05 US pelvic complete Stat Discontinued Medications Ibuprofen (Ibuprofen 400 Mg Tablet) 800 mg PO NOW ONE Stop: 05/03/23 02:39 Last Admin: 05/03/23 02:59 Dose: 800 mg Documented By: NEMO Vital Signs Vital signs: Vital Signs - 8 hr 05/03/23 01:53 05/03/23 03:17 Temperature 98.3 F Pulse Rate 89 76 Respiratory Rate 16 16 Blood Pressure 121/58 L 114/63 Pulse Oximetry 100 99 Oxygen Delivery Method Room Air Room Air Medical Decision Making Lab Data Labs: Point of Care Testing Test Results Negative Urine Dip Bedside Urine Glucose Negative Bedside Urine Bilirubin - Negative Bedside Urine Ketone - Negative Urine Specific Holiday 1.015 Bedside Urine Occult Blood - Negative Bedside Urine pH 6.5 Bedside Urine Protein - Negative Bedside Urine Urobilinogen - Negative Bedside Urine Nitrite - Negative Bedside Urine Leukocytes - Negative Esterase Point of care testing: Point of Care Testing Test Results Negative Urine Dip Bedside Urine Glucose Negative Bedside Urine Bilirubin - Negative Bedside Urine Ketone - Negative Urine Specific Holiday 1.015 Bedside Urine Occult Blood - Negative Bedside Urine pH 6.5 Bedside Urine Protein - Negative Bedside Urine Urobilinogen - Negative Bedside Urine Nitrite - Negative Bedside Urine Leukocytes - Negative Esterase Imaging Data US - RADIO TIME BUYER: Radiologist's Impression: Stable appearance of simple left paraovarian cyst No evidence of ovarian torsion Uterus unremarkable MDM Narrative Medical decision making narrative: test is negative. Urinalysis is unremarkable. She is no discomfort with palpation today but she states that even at home when the pain was at its worse it was not reproducible by palpation. Her symptoms have actually improved. We will hold on a CT scan for now as her symptoms are most likely associated with the left ovarian cyst. There was no signs of torsion. We discussed the use of Tylenol and ibuprofen at home. She was given return precautions will have her follow-up her primary doctor Discharge Plan Departure Patient Disposition: Home Clinical Impression: Ovarian cyst Instructions: Ovarian Cyst Activity Restrictions/Additional Instructions: I recommend that you contact your primary doctor about a referral to see club waiter/waitress. The cyst today is relatively unchanged however it is most likely what is causing your discomfort. You may want to consider talking with the direct mail coordinator again about the indications for surgical intervention. Referrals: Morales Blake ARNP [Primary Care Provider] - Stand Alone Forms: Patient Portal/API
[2023-05-03] MEDS: IBUPROFEN 400 MG TABLET 800 MG PO (02:59)
[2023-05-03 03:17] VITALS: BP 114/63; PULSE 76; RESP 16; O2SAT 99
== END 2023-05-03 04:05 | disposition home or self-care (01) ==
PROVIDERS: Emergency Provider Emergency Medicine; PCP Registered Nurse Diabetes Educator
DX: N83.202 Unspecified ovarian cyst, left side (principal)
CPT/HCPCS: 76830; 76856; 81003; 81025; 93975; 99283

== ENCOUNTER 2024-02-04 12:13 | Emergency (ER) | payer SELFPAY ==
[2024-02-04 12:21] VITALS: BP 131/84; PULSE 109; RESP 16; TEMP 37.1; O2SAT 99; BMI 25.3
--- NOTE | 2024-02-04 12:56 | ED_ITS ---
HPI - Dental/Oral General Chief complaint: Dental/Oral Stated complaint: tooth px, blood in mouth Time Seen by Provider: 02/04/24 12:56 Source: patient, RN notes reviewed and old records reviewed Mode of arrival: Ambulatory Limitations: no limitations History of Present Illness HPI Narrative: 24-year-old female with history of sinus arrhythmia and ovarian cyst who presents with complaint of tooth pain on the right lower tooth which has been present for about a week but slowly worsening. She notes a little bit of discoloration along the edges. She states she is known dental disease but has not been to the dentist. She has had some increasing swelling and discomfort and a metallic when he taste in her mouth. She has been on a little bit of blood today which she states thinks come from the area. No fevers or chills, she has had a little bit of congestion in her chest recently. Denies any chest pain or shortness of breath. She is coughed a few times today but states no persistent cough. No nausea or vomiting. No other new GI or urinary symptoms. No swelling of extremities. She notes she felt a funny feeling from her 3rd finger on her left hand like a string was going all the way to her chest. She states that started last night. But she states it has not painful it is more of a tingling sensation. She has full range of motion. States no daily medications. States has not seen primary care in some time. Allergy to metronidazole which is vomiting states it is improved with Zofran. States she quit tobacco a year ago, no regular alcohol use, denies any recreational drugs. Related Data Previous Rx's Medication Instructions Recorded penicillin V potassium 500 mg 500 mg PO QID 10 days #40 tabs 02/04/24 tablet Allergies Allergy/AdvReac Type Severity Reaction Status Date / Time metronidazole Allergy Mild lots of Verified 03/25/23 12:04 vomiting Review of Systems Review of Systems ROS Unobtainable: All systems reviewed & are unremarkable except as noted in HPI and below Patient History Medical History GERD (gastroesophageal reflux disease) Epigastric abdominal pain Abdominal pain, left upper quadrant Constipation Nausea Abdominal pain Folliculitis Injury of right hand PTSD (post-traumatic stress disorder) Depression Anxiety Social History Smoking Status: Former smoker Tobacco: How many years used: 5 quit status: considering quitting second hand exposure: Yes (father's home and when smoking in car w/ windows up. ) alcohol intake: current substance use type: does not use Smoking Status: Former smoker tobacco type: cigarettes alcohol intake frequency: a few times a month Substance Use Type: does not use Exam Narrative Exam Narrative: GEN: well nourished, well appearing female, alert and oriented x 3, patient appears to be in mild distress. HEENT: Atraumatic, pupils are equal round reactive to light, extraocular movements are intact, nares are clear, TMs are clear with no fluid, there is no conjunctival pallor. Throat is clear without any exudates, erythema, tonsillar enlargement or uvular deviation, patient has central caries, there is some slight erythema at the base of the right canine and adjacent teeth, no fluctuance or fluid collection appreciated there has quite a bit of whitish discoloration with a small amount of black discoloration right at the base of the edge of the gingiva on all 3 teeth. Patient does not have any facial swelling, no erythema of the outer skin, no lymphadenopathy. HEART: Regular rate and rhythm without murmur, clicks, rubs. LUNGS:Lungs clear to auscultation, no wheezes, rales, crackles, chest moves symmetrically ABD:bowel sounds normal, soft, non-tender, no guarding, rebound, rigidity, no masses noted, no hepatosplenomegaly MSCL: Non-tender, no muscle atrophy, muscles strength 5/5 upper and lower extremities, full range of motion, normal gait NEURO:CN 2-12 intact, sensation normal. Initial Vital Signs Initial Vital Signs: Vital Signs Temperature 98.7 F 02/04/24 12:21 Pulse Rate 109 H 02/04/24 12:21 Respiratory Rate 16 02/04/24 12:21 Blood Pressure 131/84 02/04/24 12:21 Pulse Oximetry 99 02/04/24 12:21 Oxygen Delivery Method Room Air 02/04/24 12:21 Course Orders Ordered: ED Orders 02/04/24 13:15 EKG-12 Lead Stat Vital Signs Vital signs: Vital Signs - 8 hr 02/04/24 12:21 Temperature 98.7 F Pulse Rate 109 H Respiratory Rate 16 Blood Pressure 131/84 Pulse Oximetry 99 Oxygen Delivery Method Room Air MDM - Dental/Oral ECG Data Attestation: I personally reviewed and interpreted this ECG as follows: Prior ECG tracings: available for review Interpretation: Sinus rhythm rate of 73 VA 130 QRS 80 QTC of 434, no acute ST elevation, nonspecific change. Patient has priors, appears similar. [facility] Narrative Medical decision making narrative: 24-year-old female who appears to have some dental caries and gingival changes but may also be developing a little bit of dental abscess. Nothing drainable on exam but we will start oral antibiotic. Discussed patient should follow up with a dentist. She noticed a funny sensation of tingling from her finger to her chest she was concerned she has a history of sinus arrhythmia, EKG appears appropriate, her exam is overall reassuring. Discharge Plan Departure Patient Disposition: Home Clinical Impression: Abscess, dental Instructions: Tooth Abscess Activity Restrictions/Additional Instructions: I do recommend you follow up with a dentist, please call to set up an appointment. Take antibiotics until completed. A prescription was sent to [facility] in [place]. Can take Tylenol up to a 1000 mg every 6 hours and/or ibuprofen up to 600 mg every 6 hours as needed for discomfort or pain. Please return for fevers rapidly worsening swelling of your lips, tongue or airway, persistent vomiting, changes to your voice or other new or concerning changes. Prescriptions: New penicillin V potassium 500 mg tablet 500 mg PO QID 10 Days Qty: 40 0RF Referrals: Morales Blake ARNP [Primary Care Provider] - Stand Alone Forms: Patient Portal/API
--- NOTE | 2024-02-04 13:15 | EKG_ITS ---
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
[2024-02-04 13:25] VITALS: PULSE 74; RESP 18; O2SAT 98
== END 2024-02-04 13:30 | disposition home or self-care (01) ==
PROVIDERS: Emergency Provider Emergency Medicine; PCP Registered Nurse Diabetes Educator
DX: K04.7 Periapical abscess without sinus (principal); I49.8 Other specified cardiac arrhythmias; R09.89 Other specified symptoms and signs involving the circulatory and respiratory systems
CPT/HCPCS: 93005; 99281; 99283

== ENCOUNTER → 2024-02-19 15:41 | Outpatient (CLI) | payer BC, SELFPAY ==
[2024-02-19 17:32] LABS: Add Manual Diff / Slide Review NO; Basophils Absolute Auto 100 /uL (0-100); Basophils Percent Auto 0.5 % (0-2); Eosinophils Absolute Auto 100 /uL (0-450); Eosinophils Percent Auto 1.3 % (2-4); Hematocrit 40.8 % (36-46); Hemoglobin 14.1 g/dL (12.0-16.0); Lymphocytes Absolute Auto 3200 /uL (1100-4500); Lymphocytes Percent Auto 31.5 % (25-40); Mean Corpuscular HGB Conc 34.6 % (30-36); Mean Corpuscular Hemoglobin 29.8 PG (26-34); Mean Corpuscular Volume 86.1 fL (80-100); Monocytes Absolute Auto 700 /uL (0-900); Neutrophils Absolute Auto 6000 /uL (1500-7000); Neutrophils Percent Auto 59.7 % (50-75); Platelet Count 293 X10^3/uL (150-400); Red Blood Cell Count 4.74 X10^6/uL (4.0-5.2); Red Cell Distribution Width 12.3 % (11.6-14.8); White Blood Cell Count 10.1 X10^3/uL (4.5-11.0)
[2024-02-19 17:45] LABS: Alanine Aminotransferase 17 IU/L (<35); Albumin 4.5 g/dL (3.5-5.0); Albumin Globulin Ratio 1.3 (1.0-2.8); Alkaline Phosphatase 57 U/L (38-126); Aspartate Aminotransferase 29 IU/L (14-36); BUN Creatinine Ratio 16.4 (6-22); Bilirubin Total 2.7 mg/dL (0.2-1.3); Blood Urea Nitrogen 9 mg/dL (7-17); Calcium 9.5 mg/dL (8.4-10.2); Carbon Dioxide 23 mmol/L (22-32); Chloride 104 mmol/L (98-107); Estimated Glomerular Filt Rate > 60 mL/min (>60); Globulin 3.5 g/dL (1.7-4.1); Glucose 79 mg/dL (70-100); HEMOLYSIS 20 (0-50); Potassium 3.9 mmol/L (3.4-5.1); Sodium 136 mmol/L (137-145)
[2024-02-19 18:48] LABS: TSH w/ Reflex to FT4 0.12 uIU/mL (0.47-4.68)
[2024-02-19 21:54] LABS: Free T4, Direct Thyroxine 1.67 ng/dL (0.78-2.19)
== END ==
PROVIDERS: PCP Registered Nurse Diabetes Educator; Referring Provider Physician Assistant; Visit Provider Physician Assistant
DX: F41.0 Panic disorder [episodic paroxysmal anxiety] (principal); R10.13 Epigastric pain
CPT/HCPCS: 36415; 80053; 84439; 84443; 85025

== ENCOUNTER 2024-03-07 18:52 | Emergency (ER) | payer BC, SELFPAY ==
[2024-03-07] VITALS (10 sets, daily range): BP systolic 103–140; BP diastolic 57–70; PULSE 71–103; RESP 16; TEMP 36.8; O2SAT 96–98; BMI 24.5
[2024-03-07 20:04] LABS: Add Manual Diff / Slide Review NO; Basophils Absolute Auto 100 /uL (0-100); Basophils Percent Auto 0.6 % (0-2); Eosinophils Absolute Auto 100 /uL (0-450); Eosinophils Percent Auto 1.3 % (2-4); Hematocrit 40.6 % (36-46); Hemoglobin 14.2 g/dL (12.0-16.0); Lymphocytes Absolute Auto 2900 /uL (1100-4500); Lymphocytes Percent Auto 27.1 % (25-40); Mean Corpuscular HGB Conc 34.9 % (30-36); Mean Corpuscular Hemoglobin 29.7 PG (26-34); Monocytes Absolute Auto 700 /uL (0-900); Monocytes Percent Auto 6.8 % (3-14); Neutrophils Absolute Auto 6800 /uL (1500-7000); Neutrophils Percent Auto 64.2 % (50-75); Platelet Count 281 X10^3/uL (150-400); Red Blood Cell Count 4.78 X10^6/uL (4.0-5.2); Red Cell Distribution Width 12.5 % (11.6-14.8); White Blood Cell Count 10.6 X10^3/uL (4.5-11.0)
[2024-03-07 20:12] LABS: Alanine Aminotransferase 23 IU/L (<35); Albumin 4.6 g/dL (3.5-5.0); Albumin Globulin Ratio 1.4 (1.0-2.8); Alkaline Phosphatase 58 U/L (38-126); Aspartate Aminotransferase 24 IU/L (14-36); BUN Creatinine Ratio 11.9 (6-22); Bilirubin Total 3.7 mg/dL (0.2-1.3); Blood Urea Nitrogen 8 mg/dL (7-17); Calcium 9.5 mg/dL (8.4-10.2); Carbon Dioxide 23 mmol/L (22-32); Chloride 105 mmol/L (98-107); Estimated Glomerular Filt Rate > 60 mL/min (>60); Globulin 3.3 g/dL (1.7-4.1); Glucose 93 mg/dL (70-100); HEMOLYSIS < 15 (0-50); Lipase 72 U/L (23-300); Potassium 3.6 mmol/L (3.4-5.1); Sodium 138 mmol/L (137-145); Total Protein 7.9 g/dL (6.3-8.2)
--- NOTE | 2024-03-07 21:10 | ED.ABDPAIN ---
HPI - Abdominal Pain General Chief Complaint: Abdominal Pain Stated Complaint: abd pain, getting worse Time Seen by Provider: 03/07/24 20:39 History of Present Illness HPI narrative: 24-year-old female with ongoing 3 months duration of abdominal discomfort, supraumbilical, also left upper quadrant, some left lower quadrant, occasionally right lower quadrant. No specific diagnosis recalled. She has 2 years ago diagnosis of diverticulosis at her young age apparently on CT scanning, no history of upper or lower endoscopies. She is having normal periods, the pain does not necessarily worse with her periods. No history of endometriosis recalled. She has had ovarian cysts in the past, this feels different. No gallbladder problems. No known stomach ulcers, she has tried to recent course of omeprazole that is not seem to change the symptoms. She went to urgent care [place] recent days, referred to the emergency department, had lab work, no imaging. No black or red stools. No nausea or vomiting. She does not feel feverish. She does not have painful urination or frequency of urination. No injury, trauma, new activities. No cough or shortness of breath, denies chest pain Related Data Previous Rx's Medication Instructions Recorded fluticasone propionate 50 1 spray intranasal DAILY #16 grams 02/19/24 mcg/actuation nasal spray,suspension (Flonase Allergy Relief) hydroxyzine HCl 25 mg tablet 25 mg PO QID PRN panic attack #30 02/19/24 tabs sertraline 25 mg tablet (Zoloft) 25 mg PO DAILY #30 tabs 02/19/24 Allergies Allergy/AdvReac Type Severity Reaction Status Date / Time metronidazole Allergy Mild lots of Verified 02/19/24 15:18 vomiting Review of Systems Review of Systems Narrative: see HPI Patient History Medical History GERD (gastroesophageal reflux disease) Epigastric abdominal pain Abdominal pain, left upper quadrant Constipation Nausea Abdominal pain Folliculitis Injury of right hand PTSD (post-traumatic stress disorder) Depression Anxiety Social History Smoking Status: Former smoker Tobacco: How many years used: 5 quit status: considering quitting second hand exposure: Yes (father's home and when smoking in car w/ windows up. ) alcohol intake: current substance use type: does not use Smoking Status: Former smoker tobacco type: cigarettes alcohol intake frequency: a few times a month Substance Use Type: does not use Exam Narrative Exam Narrative: GENERAL: Well-developed patient, in mild distress. HEAD: Atraumatic. Normocephalic. EYES: Pupils equal round and reactive. Extraocular motions intact. No scleral icterus. No injection or drainage. ENT: Nose without bleeding, purulent drainage. Throat without erythema, tonsillar hypertrophy or exudate. Airway patent. NECK: Trachea midline. Non tender CARDIOVASCULAR: Regular rate and rhythm without murmurs, gallops, or rubs. RESPIRATORY: Clear to auscultation. Breath sounds equal bilaterally. No wheezes, rales, or rhonchi. GASTROINTESTINAL: Abdomen soft, non-tender, nondistended. EXTREMITIES: No edema or joint tenderness. BACK: Nontender without deformity or crepitance. No flank tenderness. NEURO: AOx3. Motor functions grossly nonfocal SKIN: No rash or erythema of visible areas Initial Vital Signs Initial Vital Signs: Vital Signs Temperature 98.3 F 03/07/24 18:56 Pulse Rate 103 H 03/07/24 18:56 Respiratory Rate 16 03/07/24 18:56 Blood Pressure 140/70 03/07/24 18:56 Pulse Oximetry 97 03/07/24 18:56 Oxygen Delivery Method Room Air 03/07/24 18:56 Course Orders Ordered: ED Orders 03/07/24 19:46 Complete Blood Count AUTO DIFF Stat Comprehensive Metabolic Panel Stat Lipase Stat 03/07/24 21:21 CT abdomen pelvis wo con Stat 03/07/24 22:23 US pelvic complete Stat Discontinued Medications Ondansetron HCl (Ondansetron 4 Mg/2 Ml Inj) 4 mg IV NOW PRN PRN Reason: Nausea And Vomiting Ondansetron HCl (Ondansetron 4 Mg Odt) 4 mg PO NOW PRN PRN Reason: Nausea And Vomiting Vital Signs Vital signs: Vital Signs - 8 hr 03/07/24 20:02 03/07/24 20:03 03/07/24 20:30 Pulse Rate 87 83 80 Respiratory Rate 16 Blood Pressure 120/67 120/67 111/68 Pulse Oximetry 97 97 97 Oxygen Delivery Method 03/07/24 21:00 03/07/24 21:35 03/07/24 22:00 Pulse Rate 77 77 76 Respiratory Rate Blood Pressure 107/66 118/62 105/59 L Pulse Oximetry 96 97 98 Oxygen Delivery Method 03/07/24 22:30 03/07/24 23:00 03/07/24 23:30 Pulse Rate 86 75 71 Respiratory Rate 16 Blood Pressure 108/61 103/57 L 105/61 Pulse Oximetry 98 97 98 Oxygen Delivery Method Room Air MDM - Abdominal Pain Lab Data Attestation: I reviewed the patient's lab results. Lab results narrative: Urine test negative. White blood cell count, hemoglobin, CMP, LFTs, lipase normal. Urine dip negative 03/07/24 19:46 03/07/24 19:46 Labs: Lab Results 03/07/24 Range/Units 19:46 WBC 10.6 (4.5-11.0) X10^3/uL RBC 4.78 (4.0-5.2) X10^6/uL Hgb 14.2 (12.0-16.0) g/dL Hct 40.6 (36-46) % MCV 85.0 (80-100) fL MCH 29.7 (26-34) PG MCHC 34.9 (30-36) % RDW 12.5 (11.6-14.8) % Plt Count 281 (150-400) X10^3/uL Neut % (Auto) 64.2 (50-75) % Lymph % (Auto) 27.1 (25-40) % [place] % (Auto) 6.8 (3-14) % Eos % (Auto) 1.3 L (2-4) % Baso % (Auto) 0.6 (0-2) % Neut # (Auto) 6800 (8509-9850) /uL Lymph # (Auto) 2900 (6292-2312) /uL [place] # (Auto) 700 (0-900) /uL Eos # (Auto) 100 (0-450) /uL Baso # (Auto) 100 (0-100) /uL Sodium 138 (137-145) mmol/L Potassium 3.6 (3.4-5.1) mmol/L Chloride 105 (98-107) mmol/L Carbon Dioxide 23 (22-32) mmol/L BUN 8 (7-17) mg/dL Creatinine 0.67 (0.52-1.04) mg/dL Estimated GFR > 60 (>60) mL/min BUN/Creatinine Ratio 11.9 (6-22) Glucose 93 (70-100) mg/dL Calcium 9.5 (8.4-10.2) mg/dL Total Bilirubin 3.7 H (0.2-1.3) mg/dL AST 24 (14-36) IU/L ALT 23 (<35) IU/L Alkaline Phosphatase 58 (38-126) U/L Total Protein 7.9 (6.3-8.2) g/dL Albumin 4.6 (3.5-5.0) g/dL Globulin 3.3 (1.7-4.1) g/dL Albumin/Globulin Ratio 1.4 (1.0-2.8) Lipase 72 (23-300) U/L Point of care testing: Point of Care Testing Test Results Negative Urine Dip Bedside Urine Glucose Negative Bedside Urine Bilirubin - Negative Bedside Urine Ketone - Negative Urine Specific [place] 1.005 Bedside Urine Occult Blood - Negative Bedside Urine pH 6.5 Bedside Urine Protein - Negative Bedside Urine Urobilinogen - Negative Bedside Urine Nitrite - Negative Bedside Urine Leukocytes - Negative Esterase Imaging Data CT scan - abdomen/pelvis: Radiologist's Impression: Close Abdomen/Pelvis CT (Signed) Abraham Youssef - 03/07/24 Launch?[place] [address] CT Scan Report Signed Patient: Nelsy Cardoso MR#: [id number] : 2000 Acct:[id number] Age/Sex: 24 / F Date of Service: 03/07/24 Loc: ED Accession Number: [id number] Procedure: CT abdomen pelvis wo con Ordering Provider: Rafa Bhakta MD PROCEDURE: CT ABDOMEN PELVIS WO CON INDICATIONS: epig, LUQ, LLQ, occ RLQ abd pain; HCG neg TECHNIQUE: Axial sections were acquired from the lung bases to the pubic symphysis. Coronal and sagittal reformats were performed. For radiation dose reduction, the following was used: automated exposure control, adjustment of mA and/or kV according to patient size. COMPARISON: [facility], CT, CT ABDOMEN PELVIS W CON, 05/03/2021, 2:12. FINDINGS: Image quality: Study limited by lack of contrast. Lower Chest: No significant findings. URINARY: Right Kidney: No stones or hydronephrosis. Right Ureter: No hydroureter. Left Kidney: No stones or hydronephrosis. Left Ureter: No hydroureter. Bladder: Normal wall thickness. No stones. ABDOMEN: Liver: No contour-deforming solid mass. Gallbladder: No radiopaque gallstones or wall thickening. Biliary ducts: No biliary dilation. Pancreas: No ductal dilation. Spleen: Size is within normal limits. Incidental note is made of an accessory splenule along the hilum of the primary spleen. Adrenal Glands: No adrenal nodules. Stomach and Bowel: Normal colonic caliber, without significant wall thickening. A normal appendix is partially seen. No dilated loops of small bowel are seen. Peritoneum: No abnormal intraperitoneal fluid. No free air. Ventral Wall: No hernia. Abdominal Nodes: No enlarged retroperitoneal or mesenteric lymph nodes. Vessels: Aorta and inferior vena cava are normal in size. PELVIS: Pelvic Organs: The uterus appears normal for age. There is a 4.4 cm left ovarian cyst seen. No suspicious features can be seen. No surrounding inflammatory change is seen. Pelvic Nodes: Unremarkable. Miscellaneous: No inguinal hernias are seen. Bones: Unremarkable. IMPRESSION: 4.4 cm left ovarian cyst. In a patient of this age, this is almost certainly benign. - If there are symptoms attributable to ovarian pathology, please consider a follow-up pelvic ultrasound for further evaluation. No obstructing stones or hydronephrosis. Additional findings: Accessory splenule Dictated by: Abraham Youssef M.D. on 03/07/2024 at 20:45 Approved by: Abraham Youssef M.D. on 03/07/2024 at 20:49 Pelvic ultrasound: Radiologist's Impression: [address] [address] Ultrasound Report Signed Patient: Nelsy Cardoso MR#: [id number] : 2000 Acct:[id number] Age/Sex: 24 / F Date of Service: 03/07/24 Loc: ED Accession Number: [id number] Procedure: US pelvic complete Ordering Provider: Rafa Bhakta MD PROCEDURE: US PELVIC COMPLETE INDICATIONS: LLQ abd pain, 4.4cm cyst on CTm, eval torsion, HCG neg TECHNIQUE: Real-time scanning was performed of the pelvic organs, with image documentation. Additional endovaginal scanning was necessary due to incomplete visualization of the adnexal and endometrial structures by transabdominal scanning. COMPARISON: [facility], CT, CT ABDOMEN PELVIS WO CON, 03/07/2024, 21:27. [facility], US, US PELVIC COMPLETE, 05/03/2023, 2:55. FINDINGS: Uterus: Uterus is anteverted and normal in size at 6.8 x 3.2 x 5.3 cm. The myometrium is homogeneous. The endometrium measures 6 mm combined thickness. Ovaries: The right ovary measures 3.4 x 2 x 2.1 cm, with a calculated ovarian volume of 7.4 cc. The left ovary measures 3.3 x 3.8 x 4.1 cm, with a calculated ovarian volume of 26.7 cc. Associated with the left ovary, there is a 3.5 cm simple cyst, without abnormal vascularity. Less than 12 follicles can be seen in each ovary. No adnexal masses are seen. Normal appearing arterial waveforms are confirmed to each ovary. Other: No pathologic free abdominal or pelvic fluid. IMPRESSION: Negative for ovarian torsion. 3.5 cm simple cyst seen involving the left ovary. In a patient of this age, this is almost certainly benign. If it would be clinically appropriate, a followup pelvic ultrasound could be considered in 6 weeks to assure resolution/ improvement. We strive to produce accurate, complete, and clear reports of imaging services. To assist us in improving patient care, this report was composed using standard report templates and voice recognition software. Therefore, it may contain abnormal punctuation, insertions and/or omissions. Occasional wrong-word or sound-alike substitutions may occur. Though we review the report and make efforts to correct it, we do recommend that the report be read carefully in proper context to recognize any text inaccuracies. Dictated by: Abraham Youssef M.D. on 03/07/2024 at 22:22 Approved by: Abraham Youssef M.D. on 03/07/2024 at 22:24 MDM Narrative Medical decision making narrative: 24-year-old female with ongoing abdominal discomfort epigastrium supraumbilical, left upper quadrant, left lower quadrant, occasionally right lower quadrant. History of diverticulosis reported on prior CT imaging 2 years ago. Recent evaluation clinic referred to [facility] emergency department, had lab work, no imaging. She tried omeprazole, not with any pain relief. She would like imaging. HCG negative. She reports palpitation like symptoms with IV contrast, prefers not to have IV contrast with CT imaging abdomen and pelvis. Urine test negative. White blood cell count [address]. We discussed CT versus ultrasound imaging, she would like to proceed with CT abdomen and pelvis noncontrast imaging at this time. She declines pain medications. Keep NPO CT abdomen and pelvis shows left ovarian cyst 4.4 cm diameter, no mentioned free fluid, no inflammatory changes noted. See radiology report. Consider left ovarian torsion, ultrasound pelvis ordered. Ultrasound pelvis shows left-sided ovarian cyst, smaller than seen on CT scanning, no obvious free fluid, no mention involution, normal blood flow, no torsion. See radiology report. Consider [id number] ibuprofen and/or Tylenol use, follow up with PCP advised. Return precautions discussed Discharge Plan Departure Patient Disposition: Home Clinical Impression: Abdominal pain, Cyst of left ovary Activity Restrictions/Additional Instructions: Ongoing 3 months duration of abdominal pain, describes it as epigastric, left upper quadrant, left lower quadrant, sometimes right lower quadrant. Afebrile on triage. No significant tenderness any particular region on examination. test negative. White blood cell count again not elevated. You desired imaging. You did not want IV contrast, associated with palpitation like symptoms. CT abdomen and pelvis imaging was done without contrast, showed left sided 4.4 cm diameter ovarian cyst, without obvious free fluid. Ultrasound was ordered for the pelvic area, predominantly to look for blood flow to the left ovary, no abnormalities in the pelvis noted, besides the presence of cystic structure which appeared smaller than 4.4 cm on ultrasound as mentioned by CT scan. It is possible this assist might be causing some discomfort, not enlarged enough for obvious surgical intervention at this time. Follow up with Gynecology advised. Return to this/nearest emergency department for any change worsening symptoms or any concerns prior Prescriptions: No Action sertraline [Zoloft] 25 mg tablet 25 mg PO DAILY Qty: 30 1RF hydroxyzine HCl 25 mg tablet 25 mg PO QID PRN (Reason: panic attack) Qty: 30 0RF fluticasone propionate [Flonase Allergy Relief] 50 mcg/actuation spray,suspension 1 spray intranasal DAILY Qty: 16 0RF Rx Instructions: administer into each nostril Referrals: Morales Blake ARNP [Primary Care Provider] - Juany Gleason MD [Physician] - Stand Alone Forms: Patient Portal/API
--- NOTE | 2024-03-07 21:21 | DI.CT.S_ITS ---
PROCEDURE: CT ABDOMEN PELVIS WO CON INDICATIONS: epig, LUQ, LLQ, occ RLQ abd pain; HCG neg TECHNIQUE: Axial sections were acquired from the lung bases to the pubic symphysis. Coronal and sagittal reformats were performed. For radiation dose reduction, the following was used: automated exposure control, adjustment of mA and/or kV according to patient size. COMPARISON: [facility], CT, CT ABDOMEN PELVIS W CON, 05/03/2021, 2:12. FINDINGS: Image quality: Study limited by lack of contrast. Lower Chest: No significant findings. URINARY: Right Kidney: No stones or hydronephrosis. Right Ureter: No hydroureter. Left Kidney: No stones or hydronephrosis. Left Ureter: No hydroureter. Bladder: Normal wall thickness. No stones. ABDOMEN: Liver: No contour-deforming solid mass. Gallbladder: No radiopaque gallstones or wall thickening. Biliary ducts: No biliary dilation. Pancreas: No ductal dilation. Spleen: Size is within normal limits. Incidental note is made of an accessory splenule along the hilum of the primary spleen. Adrenal Glands: No adrenal nodules. Stomach and Bowel: Normal colonic caliber, without significant wall thickening. A normal appendix is partially seen. No dilated loops of small bowel are seen. Peritoneum: No abnormal intraperitoneal fluid. No free air. Ventral Wall: No hernia. Abdominal Nodes: No enlarged retroperitoneal or mesenteric lymph nodes. Vessels: Aorta and inferior vena cava are normal in size. PELVIS: Pelvic Organs: The uterus appears normal for age. There is a 4.4 cm left ovarian cyst seen. No suspicious features can be seen. No surrounding inflammatory change is seen. Pelvic Nodes: Unremarkable. Miscellaneous: No inguinal hernias are seen. Bones: Unremarkable. IMPRESSION: 4.4 cm left ovarian cyst. In a patient of this age, this is almost certainly benign. - If there are symptoms attributable to ovarian pathology, please consider a follow-up pelvic ultrasound for further evaluation. No obstructing stones or hydronephrosis. Additional findings: Accessory splenule Dictated by: Abraham Youssef M.D. on 03/07/2024 at 20:45 Approved by: Abraham Youssef M.D. on 03/07/2024 at 20:49
--- NOTE | 2024-03-07 22:23 | DI.US.S_ITS ---
PROCEDURE: US PELVIC COMPLETE INDICATIONS: LLQ abd pain, 4.4cm cyst on CTm, eval torsion, HCG neg TECHNIQUE: Real-time scanning was performed of the pelvic organs, with image documentation. Additional endovaginal scanning was necessary due to incomplete visualization of the adnexal and endometrial structures by transabdominal scanning. COMPARISON: [facility], CT, CT ABDOMEN PELVIS WO CON, 03/07/2024, 21:27. [facility], US, US PELVIC COMPLETE, 05/03/2023, 2:55. FINDINGS: Uterus: Uterus is anteverted and normal in size at 6.8 x 3.2 x 5.3 cm. The myometrium is homogeneous. The endometrium measures 6 mm combined thickness. Ovaries: The right ovary measures 3.4 x 2 x 2.1 cm, with a calculated ovarian volume of 7.4 cc. The left ovary measures 3.3 x 3.8 x 4.1 cm, with a calculated ovarian volume of 26.7 cc. Associated with the left ovary, there is a 3.5 cm simple cyst, without abnormal vascularity. Less than 12 follicles can be seen in each ovary. No adnexal masses are seen. Normal appearing arterial waveforms are confirmed to each ovary. Other: No pathologic free abdominal or pelvic fluid. IMPRESSION: Negative for ovarian torsion. 3.5 cm simple cyst seen involving the left ovary. In a patient of this age, this is almost certainly benign. If it would be clinically appropriate, a followup pelvic ultrasound could be considered in 6 weeks to assure resolution/ improvement. We strive to produce accurate, complete, and clear reports of imaging services. To assist us in improving patient care, this report was composed using standard report templates and voice recognition software. Therefore, it may contain abnormal punctuation, insertions and/or omissions. Occasional wrong-word or sound-alike substitutions may occur. Though we review the report and make efforts to correct it, we do recommend that the report be read carefully in proper context to recognize any text inaccuracies. Dictated by: Abraham Youssef M.D. on 03/07/2024 at 22:22 Approved by: Abraham Youssef M.D. on 03/07/2024 at 22:24
== END 2024-03-07 23:51 | disposition home or self-care (01) ==
PROVIDERS: Emergency Provider Emergency Medicine; PCP Registered Nurse Diabetes Educator
DX: N83.292 Other ovarian cyst, left side (principal); R10.13 Epigastric pain; R10.32 Left lower quadrant pain; R10.12 Left upper quadrant pain; R10.31 Right lower quadrant pain
CPT/HCPCS: 36415; 74176; 76856; 80053; 81003; 81025; 83690; 85025; 99283; 99284

== ENCOUNTER → 2024-03-12 10:03 | Outpatient (CLI) | payer BC, SELFPAY ==
--- NOTE | 2024-03-12 10:05 | DI.NM.S_ITS ---
PROCEDURE: NM UPTAKE AND SCAN RADIOPHARMACEUTICAL: 356 ?Ci I-123 sodium iodide by mouth. INDICATIONS: chronic low TSH, normal T4/t3 TECHNIQUE: I-123 sodium iodide was administered orally. Anterior neck images were obtained, and iodine uptake by the thyroid gland calculated using professor of psychiatry's software. COMPARISON: None. FINDINGS: Morphology: The thyroid gland has normal morphology and uniform activity. No 'cold' or 'hot' thyroid nodules are identified. Uptake: 6 hour thyroid uptake is 13.7 %; normal ranges are from 6-18%. 24 hour thyroid uptake is 24.8 % ; normal ranges are from 10-30%. IMPRESSION: Homogeneous appearance of the thyroid glands. Normal thyroid uptake as above. Dictated by: Sanya Hines M.D. on 03/13/2024 at 16:03 Approved by: Sanya Hines M.D. on 03/13/2024 at 16:04
== END ==
LOC: NUCM 10:04
PROVIDERS: PCP Registered Nurse Diabetes Educator; Referring Provider Physician Assistant; Visit Provider Physician Assistant
DX: E05.90 Thyrotoxicosis, unspecified without thyrotoxic crisis or storm (principal)
CPT/HCPCS: 78014; A9516

== ENCOUNTER → 2024-04-28 09:13 | Outpatient (CLI) | payer BC, SELFPAY | PROVIDERS: PCP Family Medicine; Referring Provider Family Medicine; Visit Provider Family Medicine | DX: R30.0 Dysuria (principal); R31.9 Hematuria, unspecified | CPT/HCPCS: 87086 ==

== ENCOUNTER → 2024-06-02 16:30 | Outpatient (CLI) | payer BC, SELFPAY ==
[2024-06-02 17:49] LABS: TSH w/ Reflex to FT4 0.11 uIU/mL (0.47-4.68)
[2024-06-02 18:14] LABS: Free T4, Direct Thyroxine 1.34 ng/dL (0.78-2.19)
[2024-06-03 10:18] LABS: Free T3, Triiodothyronine Free 3.84 pg/mL (2.77-5.27)
== END ==
LOC: LAB 16:31
PROVIDERS: PCP Family Medicine; Referring Provider Family Medicine; Visit Provider Family Medicine
DX: E05.90 Thyrotoxicosis, unspecified without thyrotoxic crisis or storm (principal)
CPT/HCPCS: 36415; 84439; 84443; 84481

== ENCOUNTER → 2024-06-05 16:36 | Outpatient (CLI) | payer BC, SELFPAY ==
[2024-06-07 12:12] LABS: Anti Thyroglobulin Antibody <1.0 IU/mL (0.0-0.9); Thyroid Peroxidase Antibodies 12 IU/mL (0-34)
== END ==
LOC: LAB 16:37
PROVIDERS: PCP Family Medicine; Referring Provider Physician Assistant; Visit Provider Physician Assistant
DX: E05.90 Thyrotoxicosis, unspecified without thyrotoxic crisis or storm (principal)
CPT/HCPCS: 36415; 86376; 86800

== ENCOUNTER 2024-06-08 20:52 | Emergency (ER) | payer BC, SELFPAY ==
[2024-06-08 20:56] VITALS: BP 123/77; PULSE 112; RESP 16; TEMP 36.9; O2SAT 99; BMI 24.5
[2024-06-09 01:06] VITALS: BP 118/70; PULSE 112; RESP 18; TEMP 37.1; O2SAT 98
--- NOTE | 2024-06-09 01:25 | ED_ITS ---
HPI - Neck Pain/Injury General Chief Complaint: Neck Pain/Injury Stated Complaint: lump on back of neck, px in area Time Seen by Provider: 06/09/24 01:25 Mode of arrival: Ambulatory History of Present Illness HPI Narrative: 24-year-old female comes into the ED from home for evaluation of mass/swelling/lump to right throat/neck region, states that she has been having a cough/flu-like symptoms for the past few weeks, states that today she was massaging her neck and noticed a ?bump, nonpainful non erythematous states that he has not getting any larger. She states that she was worried and wanted it to be checked out. She denies any other symptoms such as headache visual disturbances chest pain shortness breath fever chills nausea vomiting abdominal pain or any other GI/ symptoms. Patient is speaking full sentences protecting airway, no voice changes no stridor no trismus Related Data Previous Rx's Medication Instructions Recorded hydroxyzine HCl 25 mg tablet 25 mg PO QID PRN panic attack #30 02/19/24 tabs fluoxetine 10 mg capsule (Prozac) 10 mg PO DAILY #30 caps 06/02/24 Allergies Allergy/AdvReac Type Severity Reaction Status Date / Time metronidazole Allergy Mild lots of Verified 06/02/24 15:51 vomiting Review of Systems Review of Systems Narrative: General: Denies fever, chills, weight loss HEENT: Positive swelling to right side of neck, Denies headache, eye drainage, eye irritation, head trauma, sore throat, voice change Cardiovascular: Denies any chest pain, palpitations, shortness of breath, tachycardia Respiratory: Denies any shortness of breath, cough, wheeze, stridor GI/: Denies any abdominal pain, nausea, vomiting, diarrhea, bright red blood per rectum, melanotic stools, urinary frequency, urinary retention, dysuria, hematuria MSK: Denies any joint pain, muscle pains, swelling Skin: Denies any rashes, lesions, discoloration Neuro: Denies any headache, lightheadedness, dizziness, fainting, weakness Psych: Denies SI/HI Patient History Medical History (Updated 06/09/24 @ 01:39 by Lance Giron DO) Abdominal pain Cyst of left ovary GERD (gastroesophageal reflux disease) Epigastric abdominal pain Abdominal pain, left upper quadrant Constipation Nausea Abdominal pain Injury of right hand PTSD (post-traumatic stress disorder) Depression Anxiety Social History Smoking Status: Former smoker Tobacco: How many years used: 5 quit status: considering quitting second hand exposure: Yes (father's home and when smoking in car w/ windows up. ) alcohol intake: current substance use type: does not use Smoking Status: Former smoker tobacco type: cigarettes alcohol intake frequency: a few times a month Exam Narrative Exam Narrative: General: Cooperative, comfortable, well-developed, not in acute distress HEENT: Normocephalic, atraumatic, PERRLA, normal sclera, eyelids normal, patient is speaking full sentences protecting airway no stridor no voice changes no trismus Neck: Mobile lymphadenopathy noted to bilateral anterior cervical chain, no overlying erythema no ecchymosis no streaking Active full range of motion, atraumatic Chest: Normal to inspection, negative crepitus, no overlying erythema ecchymosis Respiratory: Normal respiratory effort, not in acute respiratory distress, clear to auscultation bilaterally negative cough, wheeze, tachypnea, rhonchi, rales Cardiology: Regular rate rhythm negative gallop, murmur, rubs GI/: Normal to inspection, soft, nonrigid, no tenderness to palpation, exam deferred MSK: Full range of active range of motion of all 4 extremities, atraumatic Skin: No rashes lesions noted Neuro: Alert awake oriented x3, moves all 4 extremities spontaneously, cranial nerves intact, able to answer all questions appropriately follows commands appropriately Psych: Cooperative, negative suicidal or homicidal ideations Initial Vital Signs Initial Vital Signs: Vital Signs Temperature 98.5 F 06/08/24 20:56 Pulse Rate 112 H 06/08/24 20:56 Respiratory Rate 16 06/08/24 20:56 Blood Pressure 123/77 06/08/24 20:56 Pulse Oximetry 99 06/08/24 20:56 Oxygen Delivery Method Room Air 06/08/24 20:56 Course Vital Signs Vital signs: Vital Signs - 8 hr 06/08/24 20:56 06/09/24 01:06 Temperature 98.5 F 98.8 F Pulse Rate 112 H 112 H Respiratory Rate 16 18 Blood Pressure 123/77 118/70 Pulse Oximetry 99 98 Oxygen Delivery Method Room Air Room Air MDM - Neck Pain/Injury Differential Diagnosis Differential diagnosis: Likely other (Cervical lymphadenopathy, muscle spasm, cervical neck strain) MDM Narrative Medical decision making narrative: 24-year-old female presenting to the emergency department for a lump/bump noted to the right side of her neck after massaging it, states that she has been having flu-like symptoms for the past few days feeling better now not complaining of any other symptoms but noticed the bump today and wanted it evaluated she denies any pain to the area denies any difficulty swallowing or breathing. Evaluation patient with bilateral cervical lymphadenopathy no overlying erythema ecchymosis, patient will be sent home with strict return precautions and instructed follow up with primary care doctor understands and agrees to being discharged home with outpatient follow up Discharge Plan Departure Patient Disposition: Home Clinical Impression: Adenopathy, cervical Activity Restrictions/Additional Instructions: Please read the discharge instructions sheet carefully and bring all papers to all doctor follow-up visits, as it may contain information that your doctor may want to see. Disease processes change and evolve, if your symptoms worsen or if you develop any new symptoms that are concerning to you please return for evaluation. Your evaluation today does not show any evidence of any life- threatening/serious illnesses requiring admission to the hospital or surgery. Please follow-up with your doctor for re-evaluation in approximately 1 day. Seek immediate medical attention for any worrisome symptoms. *If you do not have a primary care provider please contact the [facility] Resource line at [phone]. They will ask some questions about your medical history and help get you set up with a doctor in the community. Prescriptions: No Action fluoxetine [Prozac] 10 mg capsule 10 mg PO DAILY Qty: 30 1RF hydroxyzine HCl 25 mg tablet 25 mg PO QID PRN (Reason: panic attack) Qty: 30 0RF Referrals: Em Feliz DO [Primary Care Provider] - Stand Alone Forms: Patient Portal/API/Survey
== END 2024-06-09 01:51 | disposition home or self-care (01) ==
PROVIDERS: Emergency Provider Student in an Organized Health Care Education/Training Program; PCP Family Medicine
DX: R59.0 Localized enlarged lymph nodes (principal)
CPT/HCPCS: 99281

== ENCOUNTER → 2024-09-18 07:53 | Outpatient (CLI) | payer BC, SELFPAY ==
--- NOTE | 2024-09-18 07:55 | DI.NM.S_ITS ---
PROCEDURE: NM HIDA WITH CCK PHARMACEUTICAL: 5.4 mCi Tc-99m mebrofenin IV; 1.2 mcg CCK IV. INDICATIONS: EPI PAIN,ELEV BILIRUBIN,RUQ PAIN TECHNIQUE: Following intravenous administration of Tc-99m mebrofenin, sequential anterior abdominal images were obtained. To evaluate the contractile response of the gallbladder in response to Cholecystokinin (CCK), sincalide (0.02 ?g/kg) was administered by slow intravenous infusion approximately 60 minutes after the administration of the radiopharmaceutical. Sequential imaging was continued for 30 minutes after the start of CCK infusion. Gallbladder ejection fraction was calculated. COMPARISON: [facility] Ultrasound, US, US ABDOMEN COMPLETE, 04/13/2024, 16:37. FINDINGS: Biliary scan: There is normal tracer uptake and excretion by the liver. There is normal visualization of the intrahepatic ducts, common bile duct, and gallbladder. There is normal tracer transit into the duodenum. CCK stimulation: There is nonpainful contractile response of the gallbladder to CCK infusion. The calculated gallbladder ejection fraction is 91% ; normal values are above 35%. IMPRESSION: Normal exam. Dictated by: Trena Armenta M.D. on 09/18/2024 at 17:54 Approved by: Trena Armenta M.D. on 09/18/2024 at 17:55
== END ==
LOC: NUCM 07:54
PROVIDERS: PCP Family Medicine; Referring Provider Nurse Practitioner Family; Visit Provider Nurse Practitioner Family
DX: R10.11 Right upper quadrant pain (principal); R10.13 Epigastric pain; R17 Unspecified jaundice
CPT/HCPCS: 78227; A9537; J2805